=== PATIENT | male | born 1955 | race Caucasian/White ===

== ENCOUNTER → 2023-09-07 15:15 | Outpatient (BNVA) | payer OTHER, MEDICAID, SELFPAY | PROVIDERS: PCP Internal Medicine; Visit Provider Nurse Practitioner Adult Health | DX: E11.69 Type 2 diabetes mellitus with other specified complication (principal); E78.5 Hyperlipidemia, unspecified; Z79.4 Long term (current) use of insulin; Z79.899 Other long term (current) drug therapy | CPT/HCPCS: 82947; 99202 ==

== ENCOUNTER 2023-09-07 15:16 | Outpatient (AMB) | payer OTHER, MEDICAID, SELFPAY ==
--- NOTE | 2023-09-07 15:16 | A.OFFVIS_ITS ---
Vital Signs 09/07/23 15:20 Height 5 ft 5 in Weight 262 lb 5.601 oz BMI 43.7 BP 102/70 Blood Pressure Location Rt brachial Position Sitting Pulse 136 H Pulse Source Pulse Oximeter Intake Visit Reasons: Type 2 DM Intake Note: New patient presents today for T2DM, referred by PCP. Last Diabetic Eye exam: Within the year no retinopathy Last Podiatry Visit: Does not see a Dairy Husbandry Teacher Random Glucose: 195 mg/dl HgA1C: 9.1% 08/25/2023 Dental Assistant Instructor Required: No Accompanied by: Self / Same As Patient Allergies Penicillins Allergy (Unknown, Verified 09/07/23 15:22) Anaphylaxis Medication List - Last Reconciled 09/07/23 by Trina Lucas NP apixaban (Eliquis) 5 mg PO BID atorvastatin 80 mg PO BEDTIME blood sugar diagnostic ([employer]Touch Verio test strips) As directed carvedilol 3.125 mg PO BID diltiazem HCl ER 60 mg PO BID furosemide 40 mg PO DAILY insulin glargine (Lantus Solostar U-100 Insulin) 40 units subcut lancets ([employer]Touch Delica Plus Lancet) As directed naproxen 375 mg PO BID pen needle, diabetic (BD Ultra-Fine Short Pen Needle) As directed valsartan 80 mg PO DAILY HPI Comments Details: [68] YO [male] who is seen in consultation for T2DM at the request of PCP. Was initially started on treatment several years ago prior to having a CABG x4. Current regimen [Lantus 40 units]. He was on metformin in the past and had side effects of fatigue and felt poorly. He does not remember taking jardiance in the past (This was listed on his outside medical record). Checks sugars [1] times per day. Average sugar: [200 -250] Reports low sugars [none]. Treats lows with [Has not had any recent, keeps crackers in the car]. Most recent A1C [9.1], [up] from prior [8.8%] in [2022]. Family history of T2DM in []. Has eyes checked yearly, , [denies] retinopathy. [Denies ] neuropathy [Denies] nephropathy, on [SUKHJINDER/ARB]. UAC [not available] [Has] HLD, on [statin]. Last LDL [not available, requested from PCP office] [Has] CAD s/p cabg several years ago,Has had carotid surgery. Diet: Reports he has lost 80 pounds over a few years. Doesn't eat any particular diet, uses portion control loves cheese [No recent] diabetes education. Denies cp, painful neuropathy, leg cramps. [facility] Medical History (Updated 09/08/23 @ 14:49 by Trina Lucas NP) Obesity Carotid stenosis Coronary artery disease Atrial fibrillation Hyperlipidemia associated with type 2 diabetes mellitus Type 2 diabetes mellitus not at goal Surgical History History of surgery Hx of tonsillectomy Hx of appendectomy History of quadruple bypass Family History Mother Family history unknown Father Heart problem Social History Alcohol intake: current Alcohol intake frequency: holidays/special occasions only Patient Tobacco Use Status: Current someday Tobacco user Physical Exam Vital Signs: Last Vital Signs Pulse 136 H 09/07/23 15:20 BP 102/70 09/07/23 15:20 BMI result Body Mass Index 43.7 Const General: cooperative, healthy appearing and no acute distress Nutritional Appearance: overweight Orientation/consciousness: oriented to person Limitations: no limitations Neck Thyroid: Thyroid normal Chest Chest palpation & inspection: normal inspection of the chest Resp Effort & Inspection: normal respiratory effort Auscultation: clear to auscultation bilaterally Cardio Other: no carotid bruit Jugular venous distension: no JVD Rate: regular rate Rhythm: regular rhythm Heart sounds: S1 normal heart sound present and S2 normal heart sound present Neuro General: oriented to person Extrem Other: Visual exam of foot performed. No ulcerations or open lesions. No onchomycosis, no callouses. Sensation intact to monofilament exam. Vibratory sensation is normal with 128 Hz tuning fork. Results Reviewed Results Reviewed: Laboratory Last Values Glucose (Clinic) 195 mg/dL (60-115) H 09/07/23 15:43 outside lab and PCP note reviewed Assessment & Plan Assessment & Plan (1) Type 2 diabetes mellitus not at goal: Code(s): E11.9 - Type 2 diabetes mellitus without complications Category: Medical Plan: Above target A1C. Reviewed essential nature of achieving A1C of 7% to prevent additional complications of DM. Will increase Lantus to 44 units and add Semaglutide 0.25 mg weekly, titrating dose monthly. He has no prior h/o GB disease or pancreatitis. I reviewed side effects of medication. Can consider adding sglt-2 inhibitor in the future. For now, will lower his sugars with additional of GLP-1 agonist. Adding an sglt-2 inhibitor in the face of higher sugars and 2-3 times nocturia nightly may be problematic at this time. He will meet with CDE for general education and review of Semaglutide pen. (2) Hyperlipidemia associated with type 2 diabetes mellitus: Code(s): E11.69 - Type 2 diabetes mellitus with other specified complication; E78.5 - Hyperlipidemia, unspecified Category: Medical Plan: Continue statin. LDL 78 2022. Obtain recently drawn blood work. Medications: New semaglutide (Ozempic) for 4 weeks 0.25 mg (0.368 mL) subcut QWEEK 3 mL 1RF E11.9 - Type 2 diabetes mellitus without complications Coding Level of Care Code New Pt Level 4 (23091) Complex EM visit Add On G2211 Diagnoses Type 2 diabetes mellitus not at goal E11.9 Hyperlipidemia associated with type 2 diabetes mellitus E11.69; E78.5 Time Spent (min) 45 Comment 15 min chart review 30 minutes face to face
[2023-09-07 15:20] VITALS: BP 102/70; PULSE 136; BMI 43.7
[2023-09-07 15:47] LABS: Glucose, Whole Blood 195 mg/dL (60-115)
== END 2023-09-07 16:34 | disposition home or self-care (01) ==
PROVIDERS: PCP Internal Medicine; Visit Provider Nurse Practitioner Adult Health
DX: E11.69 Type 2 diabetes mellitus with other specified complication (principal); E78.5 Hyperlipidemia, unspecified
CPT/HCPCS: 99204; G2211

== ENCOUNTER 2023-09-28 15:29 | Outpatient (AMB) | payer OTHER, MEDICAID, SELFPAY ==
--- NOTE | 2023-09-28 16:04 | MHC.AMDMED ---
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: No Accompanied by: Self / Same As Patient Allergies Penicillins Allergy (Unknown, Verified 09/07/23 15:22) Anaphylaxis HPI Comprehensive Diabetes Asmnt Most Recent Diabetes Results: No Data to Display [facility] Medical History (Updated 09/08/23 @ 15:02 by Trina Lucas NP) Non-STEMI (non-ST elevated myocardial infarction) Obesity Carotid stenosis Coronary artery disease Atrial fibrillation Hyperlipidemia associated with type 2 diabetes mellitus Type 2 diabetes mellitus not at goal Surgical History History of surgery Hx of tonsillectomy Hx of appendectomy History of quadruple bypass Family History Mother Family history unknown Father Heart problem Social History Alcohol intake: current Alcohol intake frequency: holidays/special occasions only Patient Tobacco Use Status: Current someday Tobacco user Assessment & Plan Assessment & Plan (1) Type 2 diabetes mellitus not at goal: Code(s): E11.9 - Type 2 diabetes mellitus without complications Plan: Insulin/Incretin?Mimetic Education visit Patient Education: Patient at visit for Ozempic teaching Patient was instructed and provided with demonstration of the following: Insulin action and Incretin Mimetics medication storage how to set up medication pen/or syringe and vial Handwashing insulin injection site rotation Site rotation recognizing hypertrophy Testing blood glucose Removing and disposing needle from insulin pen Safe disposal of sharps Target blood sugar Signs/ symptoms/treatment of hypoglycemia/hyperglycemia expiration of open insulin pen Patient verbalized understanding of education provided and was able to demonstrate proper use of inject into injection pillow Reviewed rule of 15s to treat glucose under 70 mg/dL Patient will contact pharmacy to find out when he will receive Ozempic to 0.25 mg All questions were answered and patient was advised to contact the office with any questions or concerns. Portions of this note were created using voice recognition software, please excuse any words or phrases that may have been misinterpreted. Coding Level of Care Code Est Pt Level 1 (50572) Diagnoses Type 2 diabetes mellitus not at goal E11.9
== END 2023-09-28 16:35 | disposition home or self-care (01) ==
PROVIDERS: PCP Internal Medicine; Visit Provider Registered Nurse Diabetes Educator
DX: E11.9 Type 2 diabetes mellitus without complications (principal)

== ENCOUNTER → 2023-09-28 15:29 | Outpatient (BNVA) | payer OTHER, MEDICAID, SELFPAY | PROVIDERS: PCP Internal Medicine; Visit Provider Registered Nurse Diabetes Educator | DX: E11.9 Type 2 diabetes mellitus without complications (principal) | CPT/HCPCS: 99211 ==

== ENCOUNTER 2023-10-12 15:26 | Outpatient (REF) | payer OTHER, SELFPAY ==
[2023-10-12 17:22] LABS: Creatinine Urine 187.63 mg/dL; Microalbum/Creatinine Ratio Ur 27.1 ug/mg cr (<30)
[2023-10-12 17:31] LABS: Alanine Aminotransferase 24 U/L (0-40); Alkaline Phosphatase 138 U/L (39-117); Anion Gap 16 (12-20); Aspartate Amino Transferase 14 U/L (5-37); Bilirubin Total 0.6 mg/dL (0.0-1.0); Blood Urea Nitrogen 22 mg/dL (9-16); Calcium 9.4 mg/dL (8.4-10.2); Carbon Dioxide 25 mmol/L (22-29); Chloride 101 mmol/L (96-108); Cholesterol 133 mg/dL (<200); Estimated Glomerular Filt Rate 59; Glucose Random 177 mg/dL (60-115); HDL Cholesterol 34 mg/dL (>40); LDL Cholesterol Calculated 81 mg/dL (<100); Potassium 4.3 mmol/L (3.3-5.1); Sodium 138 mmol/L (135-145); Total Protein 7.7 g/dL (6.5-8.0); Triglycerides 92 mg/dL (<150)
[2023-10-12 17:45] LABS: Free T4 (Free Thyroxine) 1.06 ng/dL (0.71-1.85); Thyroid Stimulating Hormone 2.54 uIU/mL (0.32-4.0)
== END 2023-10-12 15:27 | disposition home or self-care (01) ==
LOC: HO.LAB 15:26
PROVIDERS: PCP Internal Medicine; Visit Provider Nurse Practitioner Adult Health
DX: E11.9 Type 2 diabetes mellitus without complications (principal); Z79.4 Long term (current) use of insulin; Z79.899 Other long term (current) drug therapy
CPT/HCPCS: 36415; 80053; 80061; 82043; 82570; 82947; 84439; 84443; 99212

== ENCOUNTER 2023-10-12 15:26 | Outpatient (AMB) | payer OTHER, MEDICAID, SELFPAY ==
[2023-10-12 15:32] VITALS: BP 112/76; PULSE 144; BMI 43.7
--- NOTE | 2023-10-12 15:32 | A.OFFVIS_ITS ---
Vital Signs 10/12/23 15:32 10/12/23 15:56 Height 5 ft 5 in Weight 262 lb 5.601 oz BMI 43.7 BP 112/76 Blood Pressure Location Rt brachial Position Sitting Pulse 144 H 88 Pulse Source Pulse Oximeter Intake Visit Reasons: T2DM/CONFIRMED Intake Note: Patient presents today for a follow-up on T2DM: Last Diabetic Eye exam: Within the year no retinopathy Last Podiatry Visit: Does not see a Acoustical Installer Random Glucose: 196mg/dL, Today Most recent HgA1C: 9.1% 08/25/2023 Allergies Penicillins Allergy (Unknown, Verified 09/07/23 15:22) Anaphylaxis HPI Comments Details: [68] YO [male] who is seen in consultation for T2DM seen in f/u today. He was seen for initial consult last month at which time Lantus was increased to 44 units and mounjaro 0.25 mg weekly was prescribed Was initially started on treatment several years ago prior to having a CABG x4. Current regimen [Lantus 40 units]. He was on metformin in the past and had side effects of fatigue and felt poorly. He does not remember taking jardiance in the past (This was listed on his outside medical record). Checks sugars [1] times per day. Average sugar: [150's] Reports low sugars [none]. Treats lows with [Has not had any recent, keeps crackers in the car]. Most recent A1C [9.1], [up] from prior [8.8%] in [2022]. Has eyes checked yearly, , [denies] retinopathy. [Denies ] neuropathy [Denies] nephropathy, on [SUKHJINDER/ARB]. UAC [not available] [Has] HLD, on [statin]. Last LDL [not available, requested from PCP office] [Has] CAD s/p cabg several years ago,Has had carotid surgery. Diet: Reports he has lost 80 pounds over a few years. Doesn't eat any particular diet, uses portion control loves cheese [No recent] diabetes education. Denies cp, painful neuropathy, leg cramps. [facility] Medical History (Updated 09/08/23 @ 15:02 by Trina Lucas NP) Non-STEMI (non-ST elevated myocardial infarction) Obesity Carotid stenosis Coronary artery disease Atrial fibrillation Hyperlipidemia associated with type 2 diabetes mellitus Type 2 diabetes mellitus not at goal Surgical History History of surgery Hx of tonsillectomy Hx of appendectomy History of quadruple bypass Family History Mother Family history unknown Father Heart problem Social History Alcohol intake: current Alcohol intake frequency: holidays/special occasions only Patient Tobacco Use Status: Current someday Tobacco user Physical Exam Vital Signs: Last Vital Signs Pulse 144 H 10/12/23 15:32 BP 112/76 10/12/23 15:32 BMI result Body Mass Index 43.7 Assessment & Plan Assessment & Plan (1) Type 2 diabetes mellitus not at goal: Code(s): E11.9 - Type 2 diabetes mellitus without complications Category: Medical Plan: continue lantus 40 units daily start ozempic 0.25mg daily decline sensor labs today Orders: Orders Thyroid Stimulating Hormone Today E11.9 - Type 2 diabetes mellitus without complications Free T4 (Free Thyroxine) Today E11.9 - Type 2 diabetes mellitus without complications Comprehensive Met. Panel Today E11.9 - Type 2 diabetes mellitus without complications Lipid Panel Today E11.9 - Type 2 diabetes mellitus without complications Microalbumin, Random (w Creat) Today E11.9 - Type 2 diabetes mellitus without complications Medications: New semaglutide (Ozempic) for 4 weeks 0.25 mg (0.368 mL) subcut QWEEK 30 days 1.84 mL 0RF E11.9 - Type 2 diabetes mellitus without complications Discontinued semaglutide (Ozempic) for 4 weeks Discontinued Reason: Doctor's Order 0.25 mg (0.187 mL) subcut QWEEK 28 days 0.748 mL 1RF E11.9 - Type 2 diabetes mellitus without complications semaglutide (Ozempic) for 4 weeks Discontinued Reason: Duplicate 0.25 mg (0.368 mL) subcut QWEEK 30 days 1.84 mL 2RF E11.9 - Type 2 diabetes mellitus without complications Coding Level of Care Code Est Pt Level 3 (79447) Complex EM visit Add On G2211 Diagnoses Type 2 diabetes mellitus not at goal E11.9 Time Spent (min) 20 Comment reviewing chart, phone to pharmacy, document
[2023-10-12 15:43] LABS: Glucose, Whole Blood 191 mg/dL (60-115)
[2023-10-12 15:56] VITALS: PULSE 88
== END 2023-10-12 16:07 | disposition home or self-care (01) ==
PROVIDERS: PCP Internal Medicine; Visit Provider Nurse Practitioner Adult Health
DX: E11.9 Type 2 diabetes mellitus without complications (principal)
CPT/HCPCS: 99213; G2211

== ENCOUNTER 2023-11-23 14:52 | Outpatient (AMB) | payer OTHER, MEDICAID, SELFPAY ==
--- NOTE | 2023-11-23 13:47 | A.OFFVIS_ITS ---
Vital Signs 11/23/23 15:27 Height 5 ft 5 in Weight 260 lb 9.382 oz BMI 43.4 BP 148/66 H Blood Pressure Location Rt brachial Position Sitting Pulse 73 Pulse Source Pulse Oximeter Intake Visit Reasons: T2DM/CONFIRMED Intake Note: Patient presents today for a follow-up on T2DM: Last Diabetic Eye exam: 12/2022 Last Podiatry Visit: Does not see a Buffer Copper Random Glucose: 111 mg/dL, Today Most recent HgA1C: 7.8% Mold Inspector Required: No Accompanied by: Self / Same As Patient Allergies Penicillins Allergy (Unknown, Verified 11/23/23 15:34) Anaphylaxis HPI Comments Details: [68] YO [male] who is seen in follow up for T2DM. He was seen for initial diabetes consult two months ago at which time mounjaro was prescribed. Was initially started on treatment several years ago prior to having a CABG x4. Had been on metformin with symptoms of fatigue and feeling poorly. He does not remember being on jardiance or having side effects to this however outside medical record indicate he was on Jardiance. HE has lost several pounds since his last visit, Current regimen [Lantus 40 units]. Moumjaro 2.5mg weekly Checks sugars [1] times per day. Average sugar: [150's] Reports low sugars [none]. Treats lows with several pieces of candy,keeps crackers in the car]. Most recent A1C [9.1], [up] from prior [8.8%] in [2022]. Has eyes checked yearly, , [denies] retinopathy. [Denies ] neuropathy [Denies] nephropathy, on [SUKHJINDER/ARB]. UAC [not available] [Has] HLD, on [statin]. Last LDL [not available] [Has] CAD s/p cabg several years ago,Has had carotid surgery. Diet: Reports he has lost 80 pounds over a few years. Doesn't eat any particular diet, uses portion control loves cheese [No recent] diabetes education. Denies cp, painful neuropathy, leg cramps. [facility] Medical History Non-STEMI (non-ST elevated myocardial infarction) Obesity Carotid stenosis Coronary artery disease Atrial fibrillation Hyperlipidemia associated with type 2 diabetes mellitus Type 2 diabetes mellitus not at goal Surgical History History of surgery Hx of tonsillectomy Hx of appendectomy History of quadruple bypass Family History Mother Family history unknown Father Heart problem Social History Alcohol intake: current Alcohol intake frequency: holidays/special occasions only Patient Tobacco Use Status: Current someday Tobacco user Physical Exam Vital Signs: Last Vital Signs Pulse 73 11/23/23 15:27 BP 148/66 H 11/23/23 15:27 BMI result Body Mass Index 43.4 Const Other: Absence of Cushingoid features. Absence of acromegalic features. Neck exam reveals nl size thyroid about 15 gms. No thyroid nodules palpable. Skin exam reveals absence of vitiligo or acanthosis nigricans. Extrem Other: Visual exam of foot performed. No ulcerations or open lesions. No onchomycosis, no callouses. Sensation intact to monofilament exam. Vibratory sensation is normal with 128 Hz tuning fork. Results AMB Hemoglobin A1c AMB Hemoglobin A1c 7.8 % Last Edit by СВЕТЛАНА Hussein on 11/23/23 15:49 Results Reviewed Results Reviewed: Laboratory Last Values Glucose (Clinic) 111 mg/dL (60-115) 11/23/23 15:37 Hgb A1c (Clinic) 7.8 % (4.0-6.0) H 11/23/23 15:41 Assessment & Plan Assessment & Plan (1) Type 2 diabetes mellitus not at goal: Code(s): E11.9 - Type 2 diabetes mellitus without complications Category: Medical Plan: Type 2 diabetic with known coronary artery disease with improving A1c. A1c today in the office 7.8% down from 9.3%. Increase Mounjaro to 5 mg and reduce Lantus to 34 units. He was advised that he could titrate his insulin downward an additional 6 units as needed if he is having any low sugars. Target A1c with this patient is between 7 and 8% given his age but would prefer to get down to 7%. Orders: Orders AMB Hemoglobin A1c Today E11.9 - Type 2 diabetes mellitus without complications, Z13.9 - Encounter for screening, unspecified Medications: New tirzepatide (Mounjaro) 5 mg (0.5 mL) subcut QWEEK 28 days 2 mL 11RF Discontinued tirzepatide (Mounjaro) Discontinued Reason: Duplicate 2.5 mg (0.5 mL) subcut QWEEK 4 weeks 2 mL 0RF tirzepatide (Mounjaro) Discontinued Reason: Doctor's Order 2.5 mg (0.5 mL) subcut QWEEK 4 weeks 2 mL 2RF E11.9 - Type 2 diabetes mellitus without complications Patient Instructions: The patient was counseled to always carry a source of sugar and on the rule of 15's: Take 3 glucose tablets and repeat again in 15 minutes if blood sugar is not in normal range. Continue to repeat every 15 minutes until blood sugar is normal. Coding Level of Care Code Est Pt Level 4 (09637) Diagnoses Type 2 diabetes mellitus not at goal E11.9 Time Spent (min) 35 Comment Time spent reviewing labs/provider notes, face to face, chart doc
[2023-11-23 15:27] VITALS: BP 148/66; PULSE 73; BMI 43.4
[2023-11-23 15:43] LABS: Glucose, Whole Blood 111 mg/dL (60-115)
== END 2023-11-23 16:06 | disposition home or self-care (01) ==
PROVIDERS: PCP Internal Medicine; Visit Provider Nurse Practitioner Adult Health
DX: Z13.9 Encounter for screening, unspecified (principal); E11.9 Type 2 diabetes mellitus without complications
CPT/HCPCS: 99214

== ENCOUNTER → 2023-11-23 14:52 | Outpatient (BNVA) | payer OTHER, MEDICAID, SELFPAY | PROVIDERS: PCP Internal Medicine; Visit Provider Nurse Practitioner Adult Health | DX: E11.9 Type 2 diabetes mellitus without complications (principal); Z79.84 Long term (current) use of oral hypoglycemic drugs; Z95.1 Presence of aortocoronary bypass graft | CPT/HCPCS: 82947; 83036; 99212 ==

== ENCOUNTER 2023-11-30 14:59 | Outpatient (AMB) | payer OTHER, MEDICAID, SELFPAY ==
--- NOTE | 2023-11-30 15:35 | A.OFFVIS_ITS ---
Intake Intake Visit Reasons: 60 min-conf Souvenir Assembler Required: No Accompanied by: Self / Same As Patient Allergies Penicillins Allergy (Unknown, Verified 11/23/23 15:34) Anaphylaxis HPI Comprehensive Diabetes Asmnt Most Recent Diabetes Results: Microalb/Creat Ratio 27.1 ug/mg cr (<30) 10/12/23 Cholesterol 133 mg/dL (<200) 10/12/23 HDL Cholesterol 34 mg/dL (>40) L 10/12/23 Triglycerides 92 mg/dL (<150) 10/12/23 Creatinine 1.21 mg/dL (0.5-1.4) 10/12/23 Blood Urea Nitrogen 22 mg/dL (9-16) H 10/12/23 Sodium 138 mmol/L (135-145) 10/12/23 Potassium 4.3 mmol/L (3.3-5.1) 10/12/23 Chloride 101 mmol/L (96-108) 10/12/23 Carbon Dioxide 25 mmol/L (22-29) 10/12/23 Calcium 9.4 mg/dL (8.4-10.2) 10/12/23 AST 14 U/L (5-37) 10/12/23 ALT 24 U/L (0-40) 10/12/23 Total Protein 7.7 g/dL (6.5-8.0) 10/12/23 Albumin 4.0 g/dL (3.5-5.0) 10/12/23 [facility] Medical History Non-STEMI (non-ST elevated myocardial infarction) Obesity Carotid stenosis Coronary artery disease Atrial fibrillation Hyperlipidemia associated with type 2 diabetes mellitus Type 2 diabetes mellitus not at goal Surgical History History of surgery Hx of tonsillectomy Hx of appendectomy History of quadruple bypass Family History Mother Family history unknown Father Heart problem Social History Alcohol intake: current Alcohol intake frequency: holidays/special occasions only Patient Tobacco Use Status: Current someday Tobacco user Assessment & Plan Assessment & Plan (1) Type 2 diabetes mellitus not at goal: Code(s): E11.9 - Type 2 diabetes mellitus without complications Plan: Learning objectives: The patient was provided with verbal and written education on the following topics as outlined below. The patient met all learning objectives and was able to verbalize understanding and provide teach back of education topics discussed . The patient was provided with the opportunity to ask questions and all questions were answered. Patient Assessment Assess patient education level/literacy/barriers Patient questions/concerns, patient's last A1c on 11/23/2023 7.8% Patient is currently on Mounjaro 5 mg weekly Lantus 34 units daily Patient did not bring meter to today's visit reports testing once a day. Patient did report that occasionally he wakes up with glucose under 70 mg/dL, instructed patient if this becomes a pattern he can reduce Lantus 34 units, to Lantus 30 units, he continues to have hypoglycemia he should contact BODY TEAM MEMBER or natural resources extension educator Reviewed with patient how to treat low blood sugar with rule of 15s, handout given At this time patient stated he is not interested in CGM therapy. What is Diabetes? Pathophysiology How the body produces and uses insulin Identify type of DM Risk factors Signs of Diabetes Brief overview of Diabetes Management Monitoring blood sugar Following a meal plan Regular exercise Maintaining a healthy weight Taking medication as needed Members of the care team (PCP, RN, MA, RD, CDE, producer director) Blood glucose monitoring When/how often to test Target blood sugar ranges Introduction to Nutrition Importance of healthy diet in managing DM Diet is personalized to individual preference Review patient?s regular diet/food preferences Who prepares meals/does food shopping/ Dining out?/ Barriers? How diet effects glucose Eating 3 balanced meals a day with small, healthy snacks between meals Review food groups Carbohydrates: What is a carbohydrate/Which food/food groups are considered carbohydrates Effect of carbohydrates on blood glucose Portion sizes Reading food labels Basic carb counting (if applicable per nursing assessment) Plate method Meal planning Recommendations: Follow plate method, consistent carbs and read nutritional labels. Smart Goal: Patient will test glucose at very times of the day Educational Materials: The patient was provided with the following written educational materials: Planning Healthy Meals Handout Patient Response to instructions: Comprehension of Instructions: Fair Readiness to make changes: Contemplation How confident they feel about making changes: Positive Portions of this note were created using voice recognition software, please excuse any words or phrases that may have been misinterpreted. Patient Instructions: Include regular daily activity. ADA recommends 30 minutes of exercise 5 days a week. Weight loss talk to PCP or Teletype Operator before starting new plan. Test blood sugar as directed; Fasting and 2hpp largest meal. Watch trends in results. Utilize results and to assess how food, physical activity and medications affect blood sugar results. Bring glucometer or CGM to next visit. Be knowledgeable about diabetes medication, its action, side effects, efficacy, toxicity, prescribed dosage, appropriate timing and frequency of administration, effect of missed and delayed doses and instructions for storage, travel and safety. Problem solving techniques to monitor hypo/hyperglycemia episodes and treatments. Reduce risk reduction behaviors, smoking cessation, regular eye, foot and dental examinations. Coding Level of Care Code Est Pt Level 1 (66915) Diagnoses Type 2 diabetes mellitus not at goal E11.9
== END 2023-11-30 15:52 | disposition home or self-care (01) ==
PROVIDERS: PCP Internal Medicine; Visit Provider Registered Nurse Diabetes Educator
DX: E11.9 Type 2 diabetes mellitus without complications (principal)

== ENCOUNTER → 2023-11-30 14:59 | Outpatient (BNVA) | payer OTHER, MEDICAID, SELFPAY | PROVIDERS: PCP Internal Medicine; Visit Provider Registered Nurse Diabetes Educator | DX: E11.9 Type 2 diabetes mellitus without complications (principal) | CPT/HCPCS: 99211 ==

== ENCOUNTER 2024-02-22 14:40 | Outpatient (AMB) | payer OTHER, MEDICAID, SELFPAY ==
--- NOTE | 2024-02-22 12:30 | A.OFFVIS_ITS ---
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 He was seen for initial diabetes consult two months ago at which time mounjaro was prescribed. Was initially started on treatment several years ago prior to having a CABG x4. Had been on metformin with symptoms of fatigue and feeling poorly. He does not remember being on jardiance or having side effects to this however outside medical record indicate he was on Jardiance. HE has lost several pounds since his last visit, Current regimen [Lantus 40 units]. Moumjaro 2.5mg weekly Checks sugars [1] times per day. Average sugar: [150's] Reports low sugars [none]. Treats lows with several pieces of candy,keeps crackers in the car]. Most recent A1C [9.1], [up] from prior [8.8%] in [2022]. Has eyes checked yearly, , [denies] retinopathy. [Denies ] neuropathy [Denies] nephropathy, on [SUKHJINDER/ARB]. UAC [not available] [Has] HLD, on [statin]. Last LDL [not available] [Has] CAD s/p cabg several years ago,Has had carotid surgery. Diet: Reports he has lost 80 pounds over a few years. Doesn't eat any particular diet, uses portion control loves cheese [No recent] diabetes education. Denies cp, painful neuropathy, leg cramps. [facility] Medical History Non-STEMI (non-ST elevated myocardial infarction) Obesity Carotid stenosis Coronary artery disease Atrial fibrillation Hyperlipidemia associated with type 2 diabetes mellitus Type 2 diabetes mellitus not at goal Surgical History History of surgery Hx of tonsillectomy Hx of appendectomy History of quadruple bypass Family History Mother Family history unknown Father Heart problem Social History Alcohol intake: current Alcohol intake frequency: holidays/special occasions only Patient Tobacco Use Status: Current someday Tobacco user Physical Exam Vital Signs: Last Vital Signs Pulse 132 H 02/22/24 14:46 BP 138/82 02/22/24 14:46 BMI result Body Mass Index 43.3 Const Other: Absence of Cushingoid features. Absence of acromegalic features. Neck exam reveals nl size thyroid about 15 gms. No thyroid nodules palpable. No carotid bruits present. Lungs CTA. Heart S1 S2, Reg R/R. No M/R G. Skin exam reveals absence of vitiligo or acanthosis nigricans. No edema Visual exam of foot performed. No ulcerations or open lesions. No inter digit maceration or fissuring. No onychomycosis, no callouses. Sensation intact to monofilament exam. Vibratory sensation is normal with 128 Hz tuning fork. Results AMB Hemoglobin A1c AMB Hemoglobin A1c 6.5 % Last Edit by СВЕТЛАНА Zarate on 02/22/24 15:16 Results Reviewed Results Reviewed: Laboratory Last Values Glucose (Clinic) 147 mg/dL (60-115) H 02/22/24 15:05 Hgb A1c (Clinic) 6.5 % (4.0-6.0) H 02/22/24 14:45 Assessment & Plan Assessment & Plan (1) Type 2 diabetes mellitus not at goal: Code(s): E11.9 - Type 2 diabetes mellitus without complications Category: Medical Plan: 69 year old type 2 diabetic Orders: Orders AMB Hemoglobin A1c Today E11.9 - Type 2 diabetes mellitus without complications Patient Instructions: The patient was counseled to achieve a target A1C of 7% (154 avg). Fasting blood sugars should be 90-130 in the morning and less than 180 two hours after meals. Reviewed the relationship between poor diabetic control and the development of complications. The patient was counseled to always carry a source of sugar and on the rule of 15's: Take 3 glucose tablets and repeat again in 15 minutes if blood sugar is not in normal range. Continue to repeat every 15 minutes until blood sugar is normal. Check your feet daily looking for any signs of infection, ulceration and seek medical attention if this occurs. Break in shoes gradually and do not wear open-toed shoes or walk barefooted. Coding Diagnoses Type 2 diabetes mellitus not at goal E11.9
[2024-02-22 14:46] VITALS: BP 138/82; PULSE 132; BMI 43.3
[2024-02-22 15:11] LABS: Glucose, Whole Blood 147 mg/dL (60-115)
--- OUTSIDE RECORDS SUMMARY | 2024-02-29 15:01 | XMS_ITS | Continuity of Care Document ---
Author Organization [facility] Address [address] [place] [address]- Care Team Providers Care Hospital Admissions Officer Name Role Phone Kallie KRUSE, Mario Dunn Primary Care Physician Encounter [facility] Date(s): 01/12/24 - 02/11/24 [facility] [address], [place] [address] Attending Physician: Bharath Valle Admitting Physician: AdmBharath reed Referring Physician: Admtr ArNiko Encounter Type: Triage Allergies, Adverse Reactions, Alerts Substance Criticality Severity Reaction Reaction Severity Status penicillin 1 High criticality Severe anaphylaxis Active Pork Active Egg Allergy Active 1anaphylaxis Immunizations Given and Recorded Vaccine Date Status Refusal Reason SARS-CoV-2 (COVID-19) mRNA-1273 vaccine 03/20/21 R ecorded SARS-CoV-2 (COVID-19) mRNA-1273 vaccine 06/13/20 R ecorded SARS-CoV-2 (COVID-19) mRNA-1273 vaccine 05/16/20 R ecorded Medications aspirin 81 mg oral delayed release tablet = 81 mg, By Mouth, Daily, # 30 tablet, 0 Refills, Maintenance, 03/25/22 1:09:00 PM EST, EC Tablet, [id number], Partial fill upon patient request if the prescription is for a schedule II opioid drug., 111.7, kg, 03/23/22 17:57:00 EST, Dry Weight Start Date: 03/25/22 Stop Date: 04/24/22 Status: Ordered Quantity: 30.0 Unit: tablet Repeat number: 1 atorvastatin 80 mg oral tablet 90 each, 0 Refill(s), TAKE 1 TABLET BY MOUTH AT BEDTIME, 0 Refills, 08/30/23 11:55:00 AM EDT, Partial fill upon patient request if the prescription is for a schedule II opioid drug. Start Date: 08/30/23 Status: Ordered Repeat number: 1 carvedilol 3.125 mg oral tablet 3.125 mg, 1, tablet, By Mouth, 2 times a day, Maintenance, 01/19/23 2:08:00 PM EDT, Partial fill upon patient request if the prescription is for a schedule II opioid drug. Start Date: 01/19/23 Status: Ordered Repeat number: 1 DilTIAZem Hydrochloride SR 60 mg/12 hours oral capsule, extended release 1 capsule = 60 mg, By Mouth, 2 times a day Start Date: 10/21/23 Status: Ordered Repeat number: 1 Eliquis 5 mg oral tablet 180 each, 0 Refill(s), TAKE 1 TABLET BY MOUTH TWICE DAILY, 0 Refills, 08/30/23 11:55:00 AM EDT, Partial fill upon patient request if the prescription is for a schedule II opioid drug. Start Date: 08/30/23 Status: Ordered Repeat number: 1 Lantus Solostar Pen 100 units/mL subcutaneous solution ADMINISTER 40 UNITS UNDER THE SKIN EVERY EVENING Start Date: 10/21/23 Status: Ordered Repeat number: 1 Mounjaro 2.5 mg/0.5 mL subcutaneous solution ADMINISTER 2.5 MG UNDER THE SKIN EVERY WEEK FOR 4 WEEKS Start Date: 10/21/23 Status: Ordered Repeat number: 1 valsartan 80 mg oral tablet 80 mg, 1, tablet, By Mouth, Daily, Maintenance, 01/19/23 1:58:00 PM EDT, Partial fill upon patient request if the prescription is for a schedule II opioid drug. Start Date: 01/19/23 Status: Ordered Repeat number: 1 Problem List Condition Confirmation Course Effective Dates Status Health St atus Informant Obese class II Confirmed Active Social History Social History Type Response Smoking Status Cigars or pipes matthieu y within last 30 days; Type: Cigarettes; Number of years: 15; Started at age: 15; Stopped at age: 30; entered on: 12/11/22 Sex Sex Representation Male (finding) Patient Care team information Care Team Personnel Name: Lizy Garcia RN Position: [facility] RN Member Role: Primary Care Nurse Name: Oneida Caballero RN Position: S RN Supv Member Role: Primary Care Nurse Name: Mario Arreguin MD Position: [facility] Physician - Primary Care Member Role: PCP Address: [address] [place] [address]- [place] Telecom: Name: Mary Fields RN Position: S RN Member Role: Primary Care Nurse Name: Jaquan Valerio MD Position: [facility] Renal MD Member Role: Lifetime Consulting Physician Address: [address] [facility] [place] [address]- [place] Telecom: Name: Annalise Kaplan RN Position: S RN Member Role: Primary Care Nurse Name: Martha Greenberg RN Position: S RN Member Role: Primary Care Nurse Name: Cole Bush RN Position: S RN Member Role: Primary Care Nurse Name: Charu Crawford RN Position: S RN Member Role: Primary Care Nurse Care Team Related Persons Name: CHAN STEVENS Name: SON STEVENS Insurance Providers Guarantor name: ANNETTA STEVENS Health Plan Information #: 1 Payer: NA Member Number: NA Policy Number: NA Group Number: NA Health Plan Information #: 2 Payer: [employer] MED[employer]ARE ADV PPO Member Number: NA Policy Number: NA Group Number: NA
--- OUTSIDE RECORDS SUMMARY | 2024-02-29 15:01 | XMS_ITS | Continuity of Care Document ---
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 Unspecified Restorative Procedure, By Re port Limited Oral Evaluation-Problem Focused PORCELAIN FUSED TO BASE/IMP PFM TEMPORARY CROWN PFM/PREP AND FINAL IMP Resin-Based Composite-Four Or More Surfa jf Or Inv Anterior (Excluding Final Advent) J RCT IN PROCESS Intraoral-Periapical First Film 013 Palliative (Emergency) Treatment Of [place] al Pain Oral Hygiene Instructions Periodontal Scaling [...] Provider Providers Copied on Encounter [facility], [address], [place], [id number], tel:[phone] [facility] 5 No Information [facility], [address], [place], [place], [id number], tel:[phone] [facility] examination 4 No Information [facility], [address], [place], [place], [id number], [place] tel:[phone] [facility] Sep-0 7- 4 No Information [facility], [address], [place], [place], [id number], [place] tel:[phone] [facility] examination 4 No Information [facility], [address], [place], [place], [id number], [place] tel:[phone] [facility] examination 0 - 4 No Information [facility], [address], [place], [place], [id number], [place] tel:[phone] [facility] examination 4 No Information [facility], [address], [place], [place], [id number], [place] tel:[phone] [facility] examination Jun- 4 No Information [facility], [address], [place], [place], [id number], [place] tel:[phone] [facility] examination 4 Jaycee Lara. [address] [place] [address], [id number], [place]. tel:[phone] [facility], [address], [place], [place], [id number], [place] tel:[phone] [facility] Jun-0 4 No Information [facility], [address], [place], [place], [id number], [place] tel:[phone] [facility] examination 4 No Information [facility], [address], [place], [place], [id number], [place] tel:[phone] [facility] examination 0 4 No Information [facility], [address], [place], [place], [id number], [place] tel:[phone] [facility] examination 2 3 No Information [facility], [address], [place], [place], [id number], [place] tel:[phone] [facility] examination 3 No Information [facility], [address], [place], [place], [id number], [place] tel:[phone] [facility] examination 3 No Information [facility], [address], [place], [place], [id number], [place] tel:[phone] [facility] examination 3 No Information [facility], [address], [place], [place], [id number], [place] tel:[phone] [facility] examination 3- 3 No Information [facility], [address], [place], [place], [id number], [place] tel:[phone] [facility] examination 3 No Information [facility], [address], [place], [place], [id number], [place] tel:[phone] [facility] examination 3 No Information Family History Family Member Type Diagnosis Age At Onset No Information Payers Payer name Insurance type Covered democrat ID Elvin gonzalez(ramón) Cathi [facility] CI [id number] Social History Type Description Quantity Date Captured Comments Alcohol Use Details Unknown Caffeine Use Details Unknown Tobacco Use Status No Information Smoking Status No Information Sex Male Chief Complaint And Reason For Visit No Information Reason For Referral Reason For Referral No Information Plan Of Treatment Date Type Action Status Goal CT-Colonography. Due on due Goal FIT-DNA. Due on due Goal Unhealthy drug use screening . Due on due Goal Zoster vaccine (). Due on due Goal FOBT. Due on due Goal Hepatitis C Screening. Due o n due Goal Document SOGI Information. D ue on due Goal Lipid panel. Due on due Goal Td vaccine. Due on 15 due Goal Zoster vaccine. Due on due Goal APE. Due on [...]
== END 2024-02-22 15:39 | disposition home or self-care (01) ==
PROVIDERS: PCP Internal Medicine; Visit Provider Nurse Practitioner Adult Health
DX: E11.9 Type 2 diabetes mellitus without complications (principal)

== ENCOUNTER → 2024-02-22 14:40 | Outpatient (BNVA) | payer OTHER, MEDICAID, SELFPAY | PROVIDERS: PCP Internal Medicine; Visit Provider Nurse Practitioner Adult Health | DX: E11.9 Type 2 diabetes mellitus without complications (principal) | CPT/HCPCS: 82947; 83036; 99212 ==

== ENCOUNTER 2024-03-29 14:56 | Outpatient (AMB) | payer MEDICARE, SELFPAY ==
--- OUTSIDE RECORDS SUMMARY | 2024-03-29 14:59 | XMS_ITS | Continuity of Care Document ---
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 [facility] [address], [place], [id number], tel:[phone] [facility] 5 No Information Nicholas Marcus [facility], [address] [facility] [address] [facility] [address], [place], [place], [id number], tel:[phone] [facility] examination 4 No Information Nicholas Marcus [facility], [address] [facility] [address] [facility] [address], [place], [place], [id number], [place] tel:[phone] [facility] Sep-0 7- 4 No Information [facility], [address] [facility] [facility] [address], [place], [place], [id number], [place] tel:[phone] [facility] examination 4 No Information [facility], [address] [facility] [address] [facility] [address], [place], [place], [id number], [place] tel:[phone] [facility] examination 0 - 4 No Information [facility], [address] [facility] [address] [facility] [address], [place], [place], [id number], [place] tel:[phone] [facility] examination 4 No Information [facility], [address] [facility] [facility] [address], [place], [place], [id number], [place] tel:[phone] [facility] Jun- 4 No Information [facility], [address] [facility] [address] [facility] [address], [place], [place], [id number], [place] tel:[phone] [facility] examination 4 Jaycee Lara. [address] [place] [address], [id number], [place]. tel:[phone] [facility], [address] [facility] [address], [place], [place], [id number], [place] tel:[phone] [facility] Jun-0 4 No Information [facility], [address] [facility] [address], [place], [place], [id number], [place] tel:[phone] [facility] examination 4 No Information [facility], [address] [facility] [address], [place], [place], [id number], [place] tel:[phone] [facility] examination 0 4 No Information [facility], [address] [facility] [address], [place], [place], [id number], [place] tel:[phone] [facility] examination 2 3 No Information [facility], [address] [facility] [address], [place], [place], [id number], [place] tel:[phone] [facility] examination 3 No Information [facility], [address] [facility] [address], [place], [place], [id number], [place] tel:[phone] [facility] examination 3 No Information [facility], [address] [facility] [address], [place], [place], [id number], [place] tel:[phone] [facility] examination 3 No Information [facility], [address] [facility] [address], [place], [place], [id number], [place] tel:[phone] [facility] examination 3- 3 No Information [facility], [address] [facility] [facility] [address], [place], [place], [id number], [place] tel:[phone] [facility] examination 3 No Information [facility], [address] [facility] [facility] [address], [place], [place], [id number], [place] tel:[phone] [facility] examination 3 No Information Family History Family Member Type Diagnosis Age At Onset No Information Payers Payer name Insurance type Covered republican ID Elvin gonzalez(ramón) Cathi Suarez [facility] CI [id number] Social History Type Description Quantity Date Captured [...]
--- NOTE | 2024-03-29 15:34 | A.OFFVIS_ITS ---
Intake Intake Visit Reasons: 60 min Application Development Project Manager Required: No Accompanied by: Self / Same As Patient Allergies Penicillins Allergy (Unknown, Verified 02/22/24 14:44) Anaphylaxis HPI Comprehensive Diabetes Asmnt Most Recent Diabetes Results: Microalb/Creat Ratio 27.1 ug/mg cr (<30) 10/12/23 Cholesterol 133 mg/dL (<200) 10/12/23 HDL Cholesterol 34 mg/dL (>40) L 10/12/23 Triglycerides 92 mg/dL (<150) 10/12/23 Creatinine 1.21 mg/dL (0.5-1.4) 10/12/23 Blood Urea Nitrogen 22 mg/dL (9-16) H 10/12/23 Sodium 138 mmol/L (135-145) 10/12/23 Potassium 4.3 mmol/L (3.3-5.1) 10/12/23 Chloride 101 mmol/L (96-108) 10/12/23 Carbon Dioxide 25 mmol/L (22-29) 10/12/23 Calcium 9.4 mg/dL (8.4-10.2) 10/12/23 AST 14 U/L (5-37) 10/12/23 ALT 24 U/L (0-40) 10/12/23 Total Protein 7.7 g/dL (6.5-8.0) 10/12/23 Albumin 4.0 g/dL (3.5-5.0) 10/12/23 [facility] Medical History Non-STEMI (non-ST elevated myocardial infarction) Obesity Carotid stenosis Coronary artery disease Atrial fibrillation Hyperlipidemia associated with type 2 diabetes mellitus Type 2 diabetes mellitus not at goal Surgical History History of surgery Hx of tonsillectomy Hx of appendectomy History of quadruple bypass Family History Mother Family history unknown Father Heart problem Social History Alcohol intake: current Alcohol intake frequency: holidays/special occasions only Patient Tobacco Use Status: Current someday Tobacco user Assessment & Plan Assessment & Plan (1) Hyperlipidemia associated with type 2 diabetes mellitus: Code(s): E11.69 - Type 2 diabetes mellitus with other specified complication; E78.5 - Hyperlipidemia, unspecified Plan: Learning objectives: The patient was provided with verbal and written education on the following topics as outlined below. The patient met all learning objectives and was able to verbalize understanding and provide teach back of education topics discussed . The patient was provided with the opportunity to ask questions and all questions were answered. Patient Assessment Patient questions/concerns, patient's A1c on 02/22/2024 6.5%, down from 7.8% on 11/25/23 Patient reports he has reduced his Lantus to 25 units daily due to having some fasting blood sugars in the mid 70s. Reports a sometimes he feels very tired in the morning, however he does not check glucose at that time. Recommended to patient when he feels tired to check glucose to see if he is experiencing hypoglycemia Reviewed with patient how to treat hypoglycemia with rule of 15s Patient will also be switching from Mounjaro 2.5 mg to Ozempic 1 mg, due to insurance. Reviewed with patient how to use Ozempic pen Exercise Medical clearance Effect of exercise on blood sugar Start slowly and gradually increase pace/duration over time Goal amount of exercise Checking blood glucose/have a source of carbs with you Diabetes Complications: ?Nephropathy :Kidney Disease ?diabetes can damage the kidneys, which is not only can cause them to fail but can make them lose their ability to filter waste from the blood? ?Retinopathy: Eye complications ?Retinopathy? is the commonest long-term complication of diabetes. It is leading cause of blindness Besides, Retinopathy- People with diabetes? are also prone to cataract and Glaucoma. ?Neuropathy: Nerve damage -It involves temporary or permanent damage to nerve tissue. Nerve tissue gets injured mainly due to decreased blood flow and rise in blood glucose levels. This damage can lead to pain , or loss of sensation it can also include sexual dysfunction in both men and women ? Infections poor healing: People with diabetes? have increased susceptibility to various infections, such as? pneumonias, pyelonephritis, carbuncles and diabetic ulcers. This may be due to poor blood supply, reduced cellular immunity or hyperglycemia. ?Heart Disease And Stroke: People with diabetes are four times more prone to develop Heart disease than those who do not have diabetes ?Depression: Feeling down once in awhile is normal, but some people feel sadness that just won't go away. Life for them seems hopeless. Feeling this way most of the day for two weeks or more is a sign of serious depression ?Gum Disease: People get gum disease when plaque destroys the gums and bone around the teeth. People with diabetes can get gum disease from having high blood glucose levels for a long time Lifestyle * Work * Travel * Stress management * Problem solving Know your goals * A1C * Blood sugar targets * Blood pressure * Cholesterol/LDL Urine microalbumin Smart Goal Assessment:Patient will test glucose at very times of the day Pt met goal less than 25% New Goal:? Patient will bring meter to every visit at [facility] Educational Materials: The patient was provided with the following written educational materials: ADCES 7 Healthy Behaviors Reducing Risks handout Patient Response to instructions: Comprehension of Instructions: good Readiness to make changes: action How confident they feel about making changes: positive Letter of completion of diabetes Education program will be sent to referring provider Patient will follow-up with music educator in 4 months Portions of this note were created using voice recognition software, please excuse any words or phrases that may have been misinterpreted. Patient Instructions: Include regular daily activity. ADA recommends 30 minutes of exercise 5 days a week. Weight loss talk to PCP or [employer] before starting new plan. Test blood sugar as directed; Fasting and 2hpp largest meal. Watch trends in results. Utilize results and to assess how food, physical activity and medications affect blood sugar results. Bring glucometer or CGM to next visit. Be knowledgeable about diabetes medication, its action, side effects, efficacy, toxicity, prescribed dosage, appropriate timing and frequency of administration, effect of missed and delayed doses and instructions for storage, travel and safety. Problem solving techniques to monitor hypo/hyperglycemia episodes and treatments. Reduce risk reduction behaviors, smoking cessation, regular eye, foot and dental examinations. Coding Level of Care Code Est Pt Level 1 (31613) Diagnoses Hyperlipidemia associated with type 2 diabetes mellitus E11.69; E78.5
== END 2024-03-29 15:42 | disposition home or self-care (01) ==
PROVIDERS: PCP Internal Medicine; Visit Provider Registered Nurse Diabetes Educator
DX: E11.69 Type 2 diabetes mellitus with other specified complication (principal); E78.5 Hyperlipidemia, unspecified

== ENCOUNTER → 2024-03-29 14:56 | Outpatient (BNVA) | payer BC, MEDICAID, SELFPAY | PROVIDERS: PCP Internal Medicine; Visit Provider Registered Nurse Diabetes Educator | DX: E11.69 Type 2 diabetes mellitus with other specified complication (principal); E78.5 Hyperlipidemia, unspecified | CPT/HCPCS: 99211 ==

== ENCOUNTER 2024-07-26 14:02 | Outpatient (AMB) | payer MEDICARE, SELFPAY ==
--- NOTE | 2024-07-26 14:41 | A.OFFVIS_ITS ---
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 Required: No Accompanied by: Self / Same As Patient Allergies Penicillins Allergy (Unknown, Verified 02/22/24 14:44) Anaphylaxis HPI Comprehensive Diabetes Asmnt Most Recent Diabetes Results: Microalb/Creat Ratio 27.1 ug/mg cr (<30) 10/12/23 Cholesterol 133 mg/dL (<200) 10/12/23 HDL Cholesterol 34 mg/dL (>40) L 10/12/23 Triglycerides 92 mg/dL (<150) 10/12/23 Creatinine 1.21 mg/dL (0.5-1.4) 10/12/23 Blood Urea Nitrogen 22 mg/dL (9-16) H 10/12/23 Sodium 138 mmol/L (135-145) 10/12/23 Potassium 4.3 mmol/L (3.3-5.1) 10/12/23 Chloride 101 mmol/L (96-108) 10/12/23 Carbon Dioxide 25 mmol/L (22-29) 10/12/23 Calcium 9.4 mg/dL (8.4-10.2) 10/12/23 AST 14 U/L (5-37) 10/12/23 ALT 24 U/L (0-40) 10/12/23 Total Protein 7.7 g/dL (6.5-8.0) 10/12/23 Albumin 4.0 g/dL (3.5-5.0) 10/12/23 [facility] Medical History Non-STEMI (non-ST elevated myocardial infarction) Obesity Carotid stenosis Coronary artery disease Atrial fibrillation Hyperlipidemia associated with type 2 diabetes mellitus Type 2 diabetes mellitus not at goal Surgical History History of surgery Hx of tonsillectomy Hx of appendectomy History of quadruple bypass Family History Mother Family history unknown Father Heart problem Social History Alcohol intake: current Alcohol intake frequency: holidays/special occasions only Patient Tobacco Use Status: Current someday Tobacco user Assessment & Plan Assessment & Plan (1) Hyperlipidemia associated with type 2 diabetes mellitus: Code(s): E11.69 - Type 2 diabetes mellitus with other specified complication; E78.5 - Hyperlipidemia, unspecified Plan: Learning objectives: The patient was provided with verbal and written education on the following topics as outlined below. Patient stated he would like to stop diabetes medications, discussed with patient the importance of controlling glucose with physical activity, meal planning and taking medications as prescribed Patient questions/concerns, patient reports he has been unable to afford co-pay for Ozempic 1 mg weekly, so he is currently only taking Lantus and he has titrated up to 35 units daily Patient denies hypoglycemia, reviewed with patient symptoms of hypoglycemia The patient met all learning objectives and was able to verbalize understanding and provide teach back of education topics discussed . The patient was provided with the opportunity to ask questions and all questions were answered. Topics covered in today?s session included: Insulin/Injectables (If applicable) * Storage/care of insulin?? * Injection sites? * Site rotation? * Onset, peak, duration * Drawing up insulin? * Injecting insulin/other injectables? * Sharps disposal Continuous blood glucose monitoring (if applicable) Hypoglycemia and Hyperglycemia * Signs and symptoms? * Causes?? * Treatment? * Preventing hypoglycemia? * When to seek medical attention Target Goals: * Blood glucose targets and how you feel when your blood glucose is in and out of your target ranges. * Monitoring and knowing your A1C. * What can make blood glucose go up and down and preventing high and low blood glucose. * Review of blood sugar targets in expected goal range and outside of expected goal range. * Problem solving and preventing hyper/hypoglycemia. * Sick day management of diabetes. * Using blood sugar results in decision making process in managing diabetes. ?Patient was receptive to information provided and participated in the discussion. Asked?appropriate questions and demonstrated good understanding of the topics discussed.? ? Educational Materials: The patient was provided with the following written educational materials: Hypoglycemic handout Smart Goal Assessment:? Patient will bring meter [facility] Pt met goal less than 25% New Smart Goal: Patient will bring meter to every visit at [facility] Patient Response to instructions: Comprehension of Instructions: fair Readiness to make changes:? Contemplation How confident they feel about making changes:poor Portions of this note were created using voice recognition software, please excuse any words or phrases that may have been misinterpreted. Coding Level of Care Code Est Pt Level 1 (85403) Diagnoses Hyperlipidemia associated with type 2 diabetes mellitus E11.69; E78.5
--- OUTSIDE RECORDS SUMMARY | 2024-07-26 15:18 | XMS_ITS | Clinical Summary ---
Author Organization [facility] Address [address] [place] [address] Phone Care Team Providers Care Gel Coater Name Role Phone Mario Arreguin MD Primary Care Provider [phone] Allergies Active Allergy Reactions Criticality Noted Date Comments Penicillins 02/02/2023 Medications apixaban (ELIQUIS) 5 MG tablet Take 5 mg by mouth in the morning and 5 mg in the evening. Active aspirin (ST FLORIN) 81 MG EC tablet Take 81 mg by mouth 1 (one) time each day Active atorvastatin (LIPITOR) 80 MG tablet Take 80 mg by mouth 1 (one) time each day Active carvedilol (COREG) 3.125 MG tablet Take 3.125 mg by mouth in the morning and 3.125 mg in the evening. Take with meals. Active insulin glargine (LANTUS) 100 UNIT/ML injection Inject under the skin every night Active valsartan (DIOVAN) 80 MG tablet Take 80 mg by mouth 1 (one) time each day Active Social History Tobacco Use Types Packs/Day Years Used Date Smoking Tobacco: Every Day Pipe Cigars Alcohol Use Standard Drinks/Week Comments Yes 0 (1 standard drink = 0.6 oz pur e alcohol) Sex and Gender Information Value Date Recorded Sex Assigned at Not on file Legal Sex Male 9:04 AM EDT Gender Identity Not on file Sexual Orientation Not on file Plan of Treatment Health Maintenance Due Date Last Done Comments Pneumococcal Vaccine: 50+ Ye ars (1 of 2 - PCV) 02/13/1972 Colorectal Cancer Screening: Annual FOBT 2002 Colorectal Cancer Screening: Colonoscopy 2002 Colorectal Cancer Screening: Sigmoidoscopy 2002 Influenza Vaccine (Season Ended) 2024 Hepatitis B Vaccine Aged Out No longe r eligible based on patient's age to complete this topic [place] [address] [place] [address] ([id number]) [facility] ([id number]) Care Teams Gel Coater Relationship Specialty Start Date End Date Mario Arreguin MD [address] [place] [address], [address] [place] [address] PCP - General Internal Medicine 06/16/22
--- OUTSIDE RECORDS SUMMARY | 2024-07-26 15:18 | XMS_ITS | Continuity of Care Document ---
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 Unspecified Restorative Procedure, By Re port Limited Oral Evaluation-Problem Focused PORCELAIN FUSED TO BASE/IMP PFM TEMPORARY CROWN PFM/PREP AND FINAL IMP Resin-Based Composite-Four Or More Surfa jf Or Inv Anterior (Excluding Final Lutheran) J RCT IN PROCESS Intraoral-Periapical First Film 013 Palliative (Emergency) Treatment Of Kemper al Pain Oral Hygiene Instructions Periodontal Scaling [...] Provider Providers Copied on Encounter Nicholas Marcus [facility], [address], [place], [id number], tel:[phone] [facility] 5 No Information Nicholas Marcus [facility], [address], [place], [place], [id number], tel:[phone] [facility] 4 No Information Nicholas Marcus [facility], [address], [place], [place], [id number], [place] tel:[phone] [facility] Sep-0 7- 4 No Information [facility], [address], [place], [place], [id number], [place] tel:[phone] [facility] 4 No Information [facility], [address], [place], [place], [id number], [place] tel:[phone] [facility] 0 - 4 No Information [facility], [address], [place], [place], [id number], [place] tel:[phone] [facility] 4 No Information [facility], [address], [place], [place], [id number], [place] tel:[phone] [facility] Jun- 4 No Information [facility], [address], [place], [place], [id number], [place] tel:[phone] [facility] 4 Jaycee Lara. [address] [place] [address], [id number], [place]. tel:[phone] [facility], [address], [place], [place], [id number], [place] tel:[phone] [facility] Jun-0 4 No Information [facility], [address], [place], [place], [id number], [place] tel:[phone] [facility] 4 No Information [facility], [address], [place], [place], [id number], [place] tel:[phone] [facility] 0 4 No Information [facility], [address], [place], [place], [id number], [place] tel:[phone] [facility] 2- 3 No Information [facility], [address], [place], [place], [id number], [place] tel:[phone] [facility] 1- 3 No Information [facility], [address], [place], [place], [id number], [place] tel:[phone] [facility] 8 3 No Information [facility], [address], [place], [place], [id number], [place] tel:[phone] [facility] 3 No Information [facility], [address], [place], [place], [id number], [place] tel:[phone] [facility] 3- 3 No Information [facility], [address], [place], [place], [id number], [place] tel:[phone] [facility] 7- 3 No Information [facility], [address], [place], [place], [id number], [place] tel:[phone] [facility] 3 No Information Family History Family Member Type Diagnosis Age At Onset No Information Payers Payer name Insurance type Covered democrat ID Authoriza tion(s) No Information Social History [...]
--- OUTSIDE RECORDS SUMMARY | 2024-07-26 15:19 | XMS_ITS | Clinical Summary ---
Author Organization [address] [place] [address] [place] [address] Phone Care Team Providers Care Home Health Care Worker Name Role Phone Mario Arreguin MD Primary Care Provider [phone] Allergies Active Allergy Reactions Criticality Noted Date Comments Penicillin 06/06/2024 Medications atorvastatin (LIPITOR) 80 mg tablet Take 1 tablet (80 mg total) by mouth 1 (one) time each day. at bedtime. 5 Active dilTIAZem SR (CARDIZEM SR) 60 mg 12 hr capsule Take 1 capsule (60 mg total) by mouth 2 (two) times a day. 5 Active Lantus Solostar U-100 Insulin 100 unit/mL (3 mL) injection pen INJECT 40 UNITS UNDER THE SKIN EVERY EVENING 5 Active aspirin 81 mg EC tablet Take 1 tablet (81 mg total) by mouth 1 (one) time each day. Active omega 8-cgc-ort-fish oil (Fish OiL) 1,000 (120-180) mg capsule Active carvediloL (COREG) 6.25 mg tablet Take 1 tablet (6.25 mg total) by mouth 2 (two) times a day with meals. 180 each 1 5 12/04/19 25 Active dabigatran etexilate (Pradaxa) 150 mg capsule Take 1 capsule (150 mg total) by mouth 2 (two) times a day. Do not crush or chew. 180 each 1 5 01/11/20 25 Active valsartan (DIOVAN) 80 mg tablet Take 1 tablet (80 mg total) by mouth 1 (one) time each day. 90 tablet 1 5 Active apixaban (ELIQUIS) 5 mg tablet Take 1 tablet (5 mg total) by mouth 2 (two) times a day. 180 tablet 3 5 07/15/19 25 Discontinu ed(Prescri arden Discontinu ed) valsartan (DIOVAN) 80 mg tablet Take 1 tablet (80 mg total) by mouth 1 (one) time each day. 5 07/20/19 Discontinu ed(Reorder ) Active Problems Problem Noted Date Diagnosed Date Coronary artery disease invo lving nenana coronary artery of nenana heart without angina pectoris 06/05/2024 Assessment & Plan (06/07/2024 7:47 AM EDT): Patient has a history of coronary disease status post non-STEMI in March 2022 status post CABG times 23 May 2022. Currently, he denies any exertional or anginal symptoms. He continues on medical therapy with aspirin, statin and beta-sarath. Patient advised to seek emergency medical attention by calling 911 if they were to develop severe dyspnea, chest pain that did not resolve with rest or nitroglycerin, or if they were to faint. HFrEF (heart failure with re duced ejection fraction) ([facility] V24, [facility] V28) 06/05/2024 Assessment & Plan (06/07/2024 7:47 AM EDT): Patient has a history of heart failure with reduced ejection fraction with evidence of recovery in LVEF. Prior to his CABG, his LVEF was noted to be 35 to 40% in May 2022. Postoperative echocardiogram showed normalization of LVEF 55 to 60%. Echocardiogram at [facility] at the time of hospitalization when patient was noted to be in atrial fibrillation with RVR, LVEF was noted to be reduced at 40 to 45%. His most recent echocardiogram May 2023 showed LVEF normal 55 to 60%. Currently, he denies any symptoms of acute heart failure and appears euvolemic on physical exam. He continues on medical therapy with valsartan and will increase his carvedilol as outlined below. We also discussed the possibility of undergoing a cardiac MRI for further evaluation of infiltrative disease as a cause of his history of heart failure with reduced ejection fraction. Echocardiograms in the past also showed moderate LV wall thickness. He reports he is unable to do any MRIs due to severe claustrophobia despite medications in the past as well. Therefore, recommend he undergo cardiac PYP scan to rule amyloidosis as a cause given his history of atrial fibrillation, moderate LVH and HFrEF. Orders: Immunofixation electrophoresis, IGG, IGA, IGM; Future Immunofixation, urine; Future Nuclear cardiac amyloid study (CV Performed); Future [place]-lambda free light chains, quantitative; Future Longstanding persistent atri al fibrillation (CMS/HCC V24, CMS/HCC V28) 06/05/2024 Assessment & Plan (06/07/2024 7:47 AM EDT): Patient has a history of atrial fibrillation status post cardioversion May 2023 and October 2023. On today's visit, the patient's heart rate is mildly elevated and irregular. He denies any perception of atrial fibrillation including dizziness, palpitations or heart racing. At this point, recommend he increase his carvedilol to 6.25 mg orally twice daily. We discussed referring him to electrophysiology for further evaluation and management for possible ablation/antiarrhythmics given multiple cardioversions with reoccurrence. He will continue his current dose of diltiazem. He agrees to see Dr. King as arranged for June. On the other hand, during today's visit we had a long discussion regarding anticoagulation. Patient's CHADSVASC score is 5 representing a 7.2% risk of thromobembolism. Anticoagulation is indicated to reduce risk of stroke. We discussed the importance of adherence to anticoagulation given his elevated stroke risk. His spouse was also present over the phone during the time of the visit. We discussed the possibility of initiating Warfarin as an alternative to DOAC's due to the financial burden. We discussed that this would require INR monitoring and being set up with our warfarin clinic. At the end of the discussion, the patient and spouse do not want to proceed with warfarin at this time despite my recommendation. They have reached out to the patient's senior executive assistant program for Eliquis and their request was denied. Their plan is to reach back out to the insurance company to determine the deductible prior to making a decision as they would like to continue paying for eliquis at this time. He will call our office once the final decision is made regarding continuing eliquis or transitioning to warfarin. Mixed hyperlipidemia 06/05/2024 Assessment & Plan (06/07/2024 7:47 AM EDT): Patient has history of hyperlipidemia as well as history of coronary artery disease. His last fasting lipid panel showed an LDL of 63 and at goal. He will continue his current dose of atorvastatin as prescribed. 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 07/07/2024 [address]phone [facility] [address] [place] [address] Gokul Easley MD eliquis --overide (Eliquis override); call insurance (Called insurance ) 06/20/2024 [address]phone [facility] [address] [place] [address] Leesa Nolasco NP scheduling checkout 06/17/2024 Telephone [facility] [address] [place] [phone] Harvey King MD called pt to r/s his 06/27/[address] King 06/06/2024 3:10 PM EDT Office Visit [facility] [address] [place] [address] Leesa Nolasco NP HFrEF (heart failure with reduced ejection fraction) (CMS/HCC V24, CMS/HCC V28) (Primary Dx); Coronary artery disease involving nenana coronary artery of nenana heart without angina pectoris; Longstanding persistent atrial fibrillation (CMS/HCC V24, CMS/HCC V28); Mixed hyperlipidemia 05/09/2024 Telephone [facility] Cardiology [facility] [address] [place] [id number] Gokul Easley MD [place] Form/Eliquis from Last 3 Months Medical History Medical History Date Comments Class 2 obesity DX:Class 2 obesi ty Diabetes mellitus, type 2 (C MS/HCC V24, CMS/HCC V28) DX:Diabetes mellitus, type 2 (HCC) Social History Tobacco Use Types Packs/Day Years Used Date Smoking Tobacco: Former Smokeless Tobacco: Never Alcohol Use Standard Drinks/Week Comments Yes 0 (1 standard drink = 0.6 oz pur e alcohol) occ Sex and Gender Information Value Date Recorded Sex Assigned at Not on file Legal Sex Male 6:37 AM EST Gender Identity Not on file Sexual Orientation Not on file Obstetrics History Last Filed Vital Signs Vital Sign Reading Time Taken Comments Blood Pressure 128/60 06/06/2024 3:16 PM EDT Pulse 100 06/06/2024 3:16 PM EDT Temperature - - Respiratory Rate - - Oxygen Saturation 94% 06/06/2024 3:16 PM EDT Inhaled Oxygen Concentration - - Weight 116 kg (255 lb 8 oz) 06/06/2024 3:16 PM E DT Height 170.2 cm (5' 7 ) 06/06/2024 3:16 PM EDT Body Mass Index 40.02 06/06/2024 3:16 PM EDT Plan of Treatment Upcoming Encounters Date Type Department Care Team (Late st Contact Info) Description 08/16/2024 8:40 AM EDT Consult [facility] Cardiology [facility] [address] [place] [address] Harvey King MD [address] [place], [place] [id number] Health Maintenance Due Date Last Done Comments DTaP,Tdap,and Td Vaccines (1 - Tdap) 02/13/1972 Pneumococcal Vaccine: 50+ Years (1 of 1 - PCV) 2003 Zoster Vaccines (1 of 2) 2003 RSV Immunization Adult Patients (1 - Risk 60-74 years 1-dose series) 2013 Abdominal Aortic Aneurysm (AAA) Screen 02/22/2022 Cholesterol Screening (Lipid Panel) 02/22/2022 Colorectal Cancer Screening: Colonoscopy 02/22/2022 Depression Screening 02/22/2022 Falls Risk Assessment 02/22/2022 Hepatitis C Screening 02/22/2022 Medicare Annual Wellness Visit 02/22/2022 Social Influencers of Health Screening 02/22/2022 Hypertension/CHF/CAD Annual BMP Blood Test 04/20/2023 COVID-19 Vaccine (2023-2 5 season) 2023 03/20/2021, 06/13/2020, 05/16/2020 Influenza Vaccine (Season Ended) 2024 HIB Vaccines Aged Out No longer eligi ble based on patient's age to complete this topic HPV Vaccines Aged Out No longer eligi ble based on patient's age to complete this topic Hepatitis A Vaccines Aged Out No long er eligible based on patient's age to complete this topic Hepatitis B Vaccines Aged Out No long er eligible based on patient's age to complete this topic IPV Vaccines Aged Out No longer eligi ble based on patient's age to complete this topic MMR Vaccines Aged Out No longer eligi ble based on patient's age to complete this topic Meningococcal ACWY Vaccine Aged Out N o longer eligible based on patient's age to complete this topic Meningococcal B Vaccine Aged Out No l onger eligible based on patient's age to complete this topic RSV Immunization Patients Under 20 months Aged Out No longer eligible b ased on patient's age to complete this topic Varicella Vaccines Aged Out No longer eligible based on patient's age to complete this topic Insurance [employer] - [place] MEDICARE ADVANTAGE Care Teams Home Health Care Worker Relationship Specialty Start Date End Date Mario Arreguin MD [address] [place] [id number] PCP - General 09/28/16
== END 2024-07-26 14:44 | disposition home or self-care (01) ==
LOC: HO.ENCR 14:03
PROVIDERS: PCP Internal Medicine; Visit Provider Registered Nurse Diabetes Educator
DX: E11.69 Type 2 diabetes mellitus with other specified complication (principal); E78.5 Hyperlipidemia, unspecified

== ENCOUNTER → 2024-07-26 14:02 | Outpatient (BNVA) | payer MEDICARE, SELFPAY | PROVIDERS: PCP Internal Medicine; Visit Provider Registered Nurse Diabetes Educator | DX: E11.69 Type 2 diabetes mellitus with other specified complication (principal); E78.5 Hyperlipidemia, unspecified | CPT/HCPCS: 99211 ==

== ENCOUNTER 2024-08-22 14:57 | Outpatient (AMB) | payer OTHER, MEDICAID, SELFPAY ==
--- NOTE | 2024-08-22 08:18 | A.OFFVIS_ITS ---
Vital Signs 08/22/24 15:00 Height 5 ft 5 in Weight 244 lb 11.41 oz BMI 40.7 BP 118/68 Blood Pressure Location Rt brachial Position Sitting Pulse 136 H Pulse Source Pulse Oximeter Oxygen Delivery Method Room Air Intake Visit Reasons: DM Intake Note: Patient presents today for a follow-up on T2DM: Patient has been off of insulin for the last 2 weeks due to a high co-payment. Last Diabetic Eye exam: Within the year no retinopathy Last Podiatry Visit: Does not see a Chief Clinical Officer Most recent HgA1C: 8.4%, 08/22/2024 Random Glucose: 238 mg/dL, Today Design Engineer Required: No Accompanied by: Self / Same As Patient Allergies Penicillins Allergy (Unknown, Verified 02/22/24 14:44) Anaphylaxis Medication List - Last Reconciled 04/19/24 by Trina Lucas, AB apixaban (Eliquis) 5 mg PO BID atorvastatin 80 mg PO BEDTIME blood sugar diagnostic (OneTouch Verio test strips) As directed carvedilol 3.125 mg PO BID diltiazem HCl ER 60 mg PO BID furosemide 40 mg PO DAILY insulin glargine (Basaglar KwikPen U-100 Insulin) 20 units subcut QAM lancets (OneTouch Delica Plus Lancet) As directed naproxen 375 mg PO BID pen needle, diabetic (BD Ultra-Fine Short Pen Needle) As directed semaglutide (Ozempic) 1 mg (0.75 mL) subcut QWEEK valsartan 80 mg PO DAILY HPI Comments Details: 69 YO male who is seen in follow up for T2DM. He was seen as an initial diabetes consult 1 year ago at which time mounjaro was prescribed. , Hemoglobin A1c 08/22/2024, previous 6.5% February 2025 when he was taking Mounjaro. A1c 08/22/2024 8.4%. Was initially started on treatment several years ago prior to having a CABG x4. Had been on metformin with symptoms of fatigue and feeling poorly. He does not remember being on jardiance or having side effects to this however outside medical record indicate he was on Jardiance. He stopped Ozempic due to inability to afford co-pay. Lantus insulin increased significantly in co-pay. And I would work with his pharmacist to send a number of different insulins all of which had higher co-pay. His insurance called today and basaglar will be covered for 35$ per month. He will pick this up when available from the pharmacy. Current regimen basaglar 30 units will try for ozempic through patient assistance program Checks sugars [1] times per day. Average sugar: 160-170 occ 200 He has been off both Mounjaro and insulin Reports low sugars [none]. Treats lows with several pieces of candy,keeps crackers in the car]. Has eyes checked yearly, , denies retinopathy. Denies neuropathy Denies nephropathy, on ARB 10/12/2023 EGFR 59 Has HLD, on statin. Last LDL 81 on 10/12 23 [Has CAD s/p cabg several years ago,Has had carotid surgery. Diet: Reports he has lost 80 pounds over a few years. Doesn't eat any particular diet, uses portion control loves cheese has been seen by diabetes education. [facility] Medical History Non-STEMI (non-ST elevated myocardial infarction) Obesity Carotid stenosis Coronary artery disease Atrial fibrillation Hyperlipidemia associated with type 2 diabetes mellitus Type 2 diabetes mellitus not at goal Surgical History History of surgery Hx of tonsillectomy Hx of appendectomy History of quadruple bypass Family History Mother Family history unknown Father Heart problem Social History Alcohol intake: current Alcohol intake frequency: holidays/special occasions only Patient Tobacco Use Status: Current someday Tobacco user Physical Exam Vital Signs: Last Vital Signs Pulse 136 H 08/22/24 15:00 BP 118/68 08/22/24 15:00 Oxygen Delivery Method Room Air 08/22/24 15:00 BMI result Body Mass Index 40.7 Const Other: Absence of Cushingoid features. Absence of acromegalic features. Neck exam reveals nl size thyroid about 15 gms. No thyroid nodules palpable. Heart S1 S2, Reg R/R. No M/R G. Skin exam reveals absence of vitiligo or acanthosis nigricans. No edema Visual exam of foot performed. No ulcerations or open lesions. No inter digit maceration or fissuring. No onychomycosis, no callouses. Sensation intact Results AMB Hemoglobin A1c AMB Hemoglobin A1c 8.4 % Last Edit by СВЕТЛАНА Zarate on 08/22/24 15:21 Assessment & Plan Assessment & Plan (1) Type 2 diabetes mellitus not at goal: Code(s): E11.9 - Type 2 diabetes mellitus without complications Category: Medical Plan: 69-year-old type 2 diabetic who previously was well-controlled on Mounjaro and low-dose insulin who has had her increase in A1c to 8.4% secondary to not being able to afford his medications. He is insurance company called and they are now covering Basaglar at a 35 dollar per month co-pay. He will plan to fill out patient assistance program to get Ozempic and drop them off of the office for me. As his A1c was down to 6.5% when he was able to get medications we should have no difficulty getting him back there again. The patient had an opportunity to ask questions regarding treatment plan. The patient expressed understanding and agreement with the above treatment plan. The patient is aware they should contact our office by phone for worsening glucose readings or for any low blood sugars which may warrant a change in diabetes medication. Compliance is encouraged with medications and any followup testing/consults which may have been ordered. Orders: Orders AMB Hemoglobin A1c Today E11.9 - Type 2 diabetes mellitus without complications Medications: Discontinued insulin NPH isoph U-100 human (Humulin N NPH U-100 Insulin KwikPen) Discontinued Reason: No Longer Medically Relevant 15 units (0.15 mL) subcut BID 30 days 9 mL 6RF Coding Level of Care Code Est Pt Level 4 (19897) Complex EM visit Add On G2211 Diagnoses Type 2 diabetes mellitus not at goal E11.9 Time Spent (min) 30 Comment Time spent reviewing labs/provider notes, face to face, chart doc
[2024-08-22 15:00] VITALS: BP 118/68; PULSE 136; BMI 40.7
[2024-08-22 15:11] LABS: Glucose, Whole Blood 238 mg/dL (60-115)
--- OUTSIDE RECORDS SUMMARY | 2024-08-22 16:38 | XMS_ITS | Clinical Summary ---
Author Organization [facility] Address [address] [place] [address] Phone Care Team Providers Care Professional Nursing Tutor Name Role Phone Mario Arreguin MD Primary Care Provider [phone] Allergies Active Allergy Reactions Criticality Noted Date [...] patient's age to complete this topic [place] [address] ([id number]) [facility] ([id number]) Care Teams Professional Nursing Tutor Relationship Specialty Start Date End Date Mario Arreguin MD [address] [place] [address], [address] [place] [address] PCP - General Internal Medicine 06/16/22
== END 2024-08-22 15:29 | disposition home or self-care (01) ==
LOC: HO.ENCR 14:58
PROVIDERS: PCP Internal Medicine; Visit Provider Nurse Practitioner Adult Health
DX: E11.9 Type 2 diabetes mellitus without complications (principal)
CPT/HCPCS: 99214; G2211

== ENCOUNTER → 2024-08-22 14:57 | Outpatient (BNVA) | payer MEDICARE, SELFPAY | PROVIDERS: PCP Internal Medicine; Visit Provider Nurse Practitioner Adult Health | DX: E11.9 Type 2 diabetes mellitus without complications (principal) | CPT/HCPCS: 82947; 83036; 99212 ==

== ENCOUNTER 2024-11-01 13:49 | Outpatient (AMB) | payer MEDICARE, SELFPAY ==
--- OUTSIDE RECORDS SUMMARY | 2014-08-21 05:30 | XMS_ITS | Continuity of Care Document ---
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 Unspecified Restorative Procedure, By Re port Limited Oral Evaluation-Problem Focused PORCELAIN FUSED TO BASE/IMP PFM TEMPORARY CROWN PFM/PREP AND FINAL IMP Resin-Based Composite-Four Or More Surfa jf Or Inv Anterior (Excluding Final Druze) J RCT IN PROCESS Intraoral-Periapical First Film 013 Palliative (Emergency) Treatment Of [place] al Pain Oral Hygiene Instructions Periodontal Scaling [...] Provider Providers Copied on Encounter Nicholas Marcus [facility], [address], [place], [id number], tel:[phone] [facility] 5 No Information iNcholas Marcus [facility], [address], [place], [place], [id number], tel:[phone] [facility] 4 No Information Nicholas Marcus [facility], [address], [place], [place], [id number], [place] tel:[phone] [facility] Sep-0 7- 4 No Information [facility], [address], [place], [place], [id number], [place] tel:[phone] [facility] 4 No Information [facility], [address], [place], [place], [id number], [place] tel:[phone] [facility] 0 - 4 No Information [facility], [address], [place], [place], [id number], [place] tel:[phone] [facility] 4 No Information [facility], [address], [place], [place], [id number], [place] tel:[phone] [facility] Jun- 4 No Information [facility], [address], [place], [place], [id number], [place] tel:[phone] [facility] 4 Jaycee Lara. [address] [place] [address], [id number], [place]. tel:[phone] [facility], [address], [place], [place], [id number], [place] tel:[phone] [facility] Jun-0 4 No Information [facility], [address], [place], [place], [id number], [place] tel:[phone] [facility] 4 No Information [facility], [address], [place], [place], [id number], [place] tel:[phone] [facility] 0 4 No Information [facility], [address], [place], [place], [id number], [place] tel:[phone] [facility] 2- 3 No Information [facility], [address], [place], [place], [id number], [place] tel:[phone] [facility] 1- 3 No Information [facility], [address], [place], [place], [id number], [place] tel:[phone] [facility] 8 3 No Information [facility], [address], [place], [place], [id number], [place] tel:[phone] [facility] 3 No Information [facility], [address], [place], [place], [id number], [place] tel:[phone] [facility] examination 3- 3 No Information [facility], [address], [place], [place], [id number], [place] tel:[phone] [facility] 7- 3 No Information [facility], [address], [place], [place], [id number], [place] tel:[phone] [facility] 3 No Information Family History Family Member Type Diagnosis Age At Onset No Information Payers Payer name Insurance type Covered constitution party ID Authoriza tion(s) No Information Social History Type Description Quantity Date Captured Comments Alcohol Use Details Unknown Caffeine Use Details Unknown Tobacco Use Status No Information Smoking Status No Information Sex Male Chief Complaint And Reason For Visit No Information Reason For Referral Reason For Referral No Information Plan Of Treatment Date Type Action Status Goal FIT-DNA. Due on due Goal CT-Colonography. Due on due Goal Unhealthy drug use screening . Due on due Goal Zoster vaccine (). Due on due Goal FOBT. Due on due Goal Hepatitis C Screening. Due o n due Goal Document SOGI Information. D ue on due Goal Td vaccine. Due on 15 due Goal Zoster vaccine. Due on due Goal Lipid panel. Due on due [...]
--- OUTSIDE RECORDS SUMMARY | 2024-11-01 14:11 | XMS_ITS | Clinical Summary ---
Author Organization [facility] Address [address] [place] [address] Phone Care Team Providers Care Radiologic Electronic Specialist Name Role Phone Mario Arreguin MD Primary Care Provider [phone] Allergies Active Allergy Reactions Criticality Noted Date [...] Colorectal Cancer Screening: Sigmoidoscopy 2002 Influenza Vaccine (#1) 2024 Hepatitis B Vaccine Aged Out No longe r eligible based on patient's age to complete this topic [place] [address] ([id number]) [facility] ([id number]) Care Teams Radiologic Electronic Specialist Relationship Specialty Start Date End Date Mario Arreguin MD [address] [place] [address], [address] [place] [address] PCP - General Internal Medicine 06/16/22
--- OUTSIDE RECORDS SUMMARY | 2024-11-01 14:12 | XMS_ITS | Clinical Summary ---
Author Organization [address] [place] [address] [place] [phone] Phone Care Team Providers Care Media Arts Professor Name Role Phone Mario Arreguin MD Primary Care Provider [phone] Allergies Active Allergy Reactions Criticality Noted Date Comments Penicillin 06/06/2024 Medications atorvastatin (LIPITOR) 80 mg tablet Take 1 tablet (80 mg total) by mouth 1 (one) time each day. at bedtime. 04/05/2024 Active dilTIAZem SR (CARDIZEM SR) 60 mg 12 hr capsule Take 1 capsule (60 mg total) by mouth 2 (two) times a day. 04/06/2024 Active Lantus Solostar U-100 Insulin 100 unit/mL (3 mL) injection pen INJECT 40 UNITS UNDER THE SKIN EVERY EVENING 04/06/2024 Active aspirin 81 mg EC tablet Take 1 tablet (81 mg total) by mouth 1 (one) time each day. Active omega 6-mfx-xsh-fish oil (Fish OiL) 1,000 (120-180) mg capsule Active carvediloL (COREG) 6.25 mg tablet Take 1 tablet (6.25 mg total) by mouth 2 (two) times a day with meals. 180 each 1 06/06/2024 Active dabigatran etexilate (Pradaxa) 150 mg capsule Take 1 capsule (150 mg total) by mouth 2 (two) times a day. Do not crush or chew. 180 each 1 07/14/2024 Active valsartan (DIOVAN) 80 mg tablet Take 1 tablet (80 mg total) by mouth 1 (one) time each day. 90 tablet 1 07/19/2024 Active Active Problems Problem Noted Date Diagnosed Date Class 2 obesity 08/16/2024 Lateral epicondylitis of left elbow 07/28/2024 Coronary artery disease invo lving mcgrath coronary artery of mcgrath heart without angina pectoris 06/05/2024 Assessment & Plan (08/16/2024 10:38 AM EDT): Orders: ECG 12 lead Assessment & Plan (06/07/2024 7:47 AM EDT): [...] (heart failure with re duced ejection fraction) (CMS/HCC V24, CMS/HCC V28) 06/05/2024 Assessment & Plan (08/16/2024 10:38 AM EDT): Orders: ECG 12 lead Assessment & Plan (06/07/2024 7:47 AM EDT): Patient has a history of heart failure with reduced ejection fraction with evidence of recovery in LVEF. Prior to his CABG, his LVEF was noted to be 35 to 40% in May 2022. Postoperative echocardiogram showed normalization of LVEF 55 to 60%. Echocardiogram at [facility] at the time of hospitalization when [...] Nuclear cardiac amyloid study (CV Performed); Future [place]-lambda free light chains, quantitative; Future Longstanding persistent atri al fibrillation (CMS/HCC V24, CMS/HCC V28) 06/05/2024 Assessment & Plan (08/16/2024 10:38 AM EDT): Orders: ECG 12 lead Assessment & Plan (06/07/2024 7:47 AM EDT): [...] of diltiazem. He agrees to see Dr. Simons as arranged for June. On the other [...] They have reached out to the patient's doctor's assistant program for Eliquis and their request [...] Encounters Date Type Department Care Team Description 10/11/2024 Telephone [facility] [address] [place] [address] [address] [place] [address] Annika Ramos NP Referral 09/29/2024 Telephone [facility] [address] [place] [address] [address] [place] [address] Annika Ramos NP Referral (Hem/Onc) 09/27/2024 Telephone [facility] [address] [place] [address] [place] [address] Gokul Easley MD 09/25/2024 10:35 AM EDT Lab Draw Station - [address] [facility] [facility] [place] [phone] Atrial fibrillation (CMS/HCC V24, CMS/HCC V28); HFrEF (heart failure with reduced ejection fraction) (CMS/HCC V24, CMS/HCC V28) 08/17/2024 Telephone [facility] [address] [place] [phone] Harvey Simons MD Procedure (PFA Afib Ablation 7.10.25) 08/16/2024 8:40 AM EDT Consult [facility] [address] [place] [address] Harvey Simons MD Coronary artery disease involving mcgrath coronary artery of mcgrath heart without angina pectoris (Primary Dx); HFrEF (heart failure with reduced ejection fraction) (CMS/HCC V24, CMS/HCC V28); Longstanding persistent atrial fibrillation (CMS/HCC V24, CMS/HCC V28) from Last 3 Months Medical History Medical History Date Comments Class 2 obesity DX:Class 2 obesi ty Diabetes mellitus, type 2 (C MS/HCC V24, CMS/HCC V28) DX:Diabetes mellitus, type 2 (HCC) Social History Tobacco Use Types Packs/Day Years Used Date Smoking Tobacco: Some Days Cigarettes Cigars Smokeless Tobacco: Never Tobacco Cessation:Ready to Q uit: Not Asked; Counseling Given: Not Answered Alcohol Use Standard Drinks/Week Comments Yes 0 (1 standard drink = 0.6 oz pur e alcohol) occ Sex and Gender Information Value Date Recorded Sex Assigned at Not on file Legal Sex Male 6:37 AM EST Gender Identity Not on file Sexual Orientation Not on file Obstetrics History Last Filed Vital Signs Vital Sign Reading Time Taken Comments Blood Pressure 130/84 08/16/2024 8:50 AM EDT Pulse 130 08/16/2024 8:50 AM EDT Temperature - - Respiratory Rate - - Oxygen Saturation 91% 08/16/2024 8:50 AM EDT Inhaled Oxygen Concentration - - Weight 113 kg (248 lb 3.2 oz) 08/16/2024 8:50 AM EDT Height 170.2 cm (5' 7 ) 08/16/2024 8:50 AM EDT Body Mass Index 38.87 08/16/2024 8:50 AM EDT Plan of Treatment Upcoming Encounters Date Type Department Care Team (Late st Contact Info) Description 11/22/2024 2:40 PM EDT Office Visit [facility] [address] [facility] [address] [place] [phone] Tabby Manuel PA [address] [place] [address] 12/06/2024 3:00 PM EDT Office Visit [facility] Hematology Oncology [address] [place] [address] Yane-Keegan Stafford MD [address] [place] [address] 02/05/2025 12:30 PM EST Ancillary Procedure [facility] [address] [facility] [address] [place] [address] Health Maintenance Due Date Last Done Comments DTaP,Tdap,and Td Vaccines (1 - Tdap) 02/13/1972 Pneumococcal Vaccine: 50+ Years (1 of 2 - PCV) 02/13/1972 Zoster Vaccines (1 of 2) 2003 RSV Immunization Adult Patients (1 - Risk 60-74 years 1-dose series) 2013 Abdominal Aortic Aneurysm (AAA) Screen 02/22/2022 Cholesterol Screening (Lipid Panel) 02/22/2022 Colorectal Cancer Screening: Colonoscopy 02/22/2022 Falls Risk Assessment 02/22/2022 Hepatitis C Screening 02/22/2022 Medicare Annual Wellness Visit 02/22/2022 Social Influencers of Health Screening 02/22/2022 COVID-19 Vaccine (4 - 2023-2 5 season) 2023 03/20/2021, 06/13/2020, 05/16/2020 Depression Screening 03/22/2024 Influenza Vaccine (#1) 2024 Hypertension/CHF/CAD Annual BMP Blood Test 09/25/2025 09/25/2024 HIB Vaccines Aged Out No longer eligi [...] on patient's age to complete this topic Procedures Procedure Name Priority Date/Time Associated Diagnosis Comments VA IMMUNOFIXATION ELECTROPHORESIS SERUM Routine 09/25/2024 10:33 AM EDT HFrEF (heart failure with reduced ejection fraction) (CMS/HCC V24, CMS/HCC V28) IMMUNOGLOBULINS IGG, IGA, IGM Routine 09/25/2024 10:33 AM EDT HFrEF (heart failure with reduced ejection fraction) (CMS/HCC V24, CMS/HCC V28) IMMUNOFIXATION ELECTROPHORESIS Routine 09/25/2024 10:33 AM EDT HFrEF (heart failure with reduced ejection fraction) (CMS/HCC V24, CMS/HCC V28) KAPPA-LAMBDA QUANTITATIVE FREE LIGHT CHAINS Routine 09/25/2024 10:33 AM EDT HFrEF (heart failure with reduced ejection fraction) (CMS/HCC V24, CMS/HCC V28) IMMUNOFIXATION ELECTROPHORESIS Routine 09/25/2024 10:33 AM EDT HFrEF (heart failure with reduced ejection fraction) (CMS/HCC V24, CMS/HCC V28) BASIC METABOLIC PANEL Routine 09/25/2024 10:33 AM EDT Atrial fibrillation (CMS/HCC V24, CMS/HCC V28) PROTHROMBIN TIME WITH INR Routine 09/25/2024 10:33 AM EDT Atrial fibrillation (CMS/HCC V24, CMS/HCC V28) COMPLETE BLOOD COUNT Routine 09/25/2024 10:33 AM EDT Atrial fibrillation (CMS/HCC V24, CMS/HCC V28) ECG 12-LEAD Routine 08/16/2024 9:01 AM EDT Coronary artery disease involving mcgrath coronary artery of mcgrath heart without angina pectoris HFrEF (heart failure with reduced ejection fraction) (CMS/HCC V24, CMS/HCC V28) Longstanding persistent atrial fibrillation (CMS/HCC V24, CMS/HCC V28) from Last 3 Months Results * Pathologist Review Immunofixation (09/25/2024 10:33 AM EDT) Pathologist [facility] Pathologist Interpretation Reviewed by Leslie Everett MD 09/26/2024 1:49 PM EDT [facility] Blood Venous blood specimen / Unknown Venipuncture / Unknown 09/25/2024 10:33 AM EDT 09/25/2024 10:45 AM EDT Leesa Nolasco NP LAB BLOOD ORDERABLES Final Result [facility] [address] [place] [address], * (ABNORMAL) [place]-lambda free light chains, quantitative (09/25/2024 10:33 AM EDT) [place] Free Light Chain 6.10(H) 0.33 - 1.94 mg/dL 09/27/2024 11:47 AM EDT [facility] Lambda Free Light Chain 3.00(H) 0.57 - 2.63 mg/dL 09/27/2024 11:47 AM EDT [facility] [place]/Lambda FLC Ratio 2.03(H) 0.26 - 1.65 09/27/2024 11:47 AM EDT [facility] Comment: Test performed at [facility], [address] , [place] [address] Camille Rodriguez MD, PhD - Biometrics Consultant Blood Venous blood specimen / Unknown Venipuncture / Unknown 09/25/2024 10:33 AM EDT 09/25/2024 10:45 AM EDT Leesa Nolasco SALES REP LAB BLOOD ORDERABLES Final Result [facility] [address] [place] [address] * (ABNORMAL) Prothrombin time with INR (09/25/2024 10:33 AM EDT) Pathologist [facility] Protime 14.4(H) 10.6 - 13.9 sec LAB COAGULATION METHOD 09/25/2024 10:57 AM EDT [facility] INR 1.2 LAB COAGULATION METHOD 09/25/2024 10:57 AM EDT [facility] Blood Venous blood specimen / Unknown Venipuncture / Unknown 09/25/2024 10:33 AM EDT 09/25/2024 10:46 AM EDT Harvey Simons MD LAB BLOOD ORDERABLES Final Result [facility] [address] [place] [address], * (ABNORMAL) Complete blood count (09/25/2024 10:33 AM EDT) [facility] WBC 11.5(H) 4.8 - 10.8 K/mcL LAB HEMETOLOGY METHOD 09/25/2024 11:01 AM [facility] RBC 4.90 4.50 - 5.50 M/mcL LAB HEMETOLOGY METHOD 09/25/2024 11:01 AM [facility] Hemoglobin 14.4 13.5 - 17.5 g/dL LAB HEMETOLOGY METHOD 09/25/2024 11:01 AM [facility] Hematocrit 44.2 42.0 - 54.0 % LAB HEMETOLOGY METHOD 09/25/2024 11:01 AM [facility] MCV 91.1 79.0 - 98.0 FL LAB HEMETOLOGY METHOD 09/25/2024 11:01 AM [facility] MCH 29.7 27.0 - 32.0 pcg LAB HEMETOLOGY METHOD 09/25/2024 11:01 AM EDT [facility] MCHC 32.6 32.0 - 37.0 g/dL LAB HEMETOLOGY METHOD 09/25/2024 11:01 AM EDT [facility] RDW 15.4(H) 11.0 - 15.0 % LAB HEMETOLOGY METHOD 09/25/2024 11:01 AM EDT [facility] Platelets 221 130 - 400 K/mcL LAB HEMETOLOGY METHOD 09/25/2024 11:01 AM EDT [facility] MPV 10.7 7.0 - 11.0 FL LAB HEMETOLOGY METHOD 09/25/2024 11:01 AM EDT [facility] NRBC 0.0 <1.0 % LAB HEMETOLOGY METHOD 09/25/2024 11:01 AM EDT [facility] NRBC Absolute 0.00 <0.10 K/mcL LAB HEMETOLOGY METHOD 09/25/2024 11:01 AM EDT [facility] Blood Venous blood specimen / Unknown Venipuncture / Unknown 09/25/2024 10:33 AM EDT 09/25/2024 10:46 AM EDT Harvey Simons MD LAB BLOOD ORDERABLES Final Result [facility] [address] [place] [address], * Immunofixation electrophoresis serum (09/25/2024 10:33 AM EDT) Immunofixation Result, Serum No monoclonal immunoglobulins detected. LAB CHEMISTRY METHOD 09/26/2024 1:49 PM EDT [facility] Blood Venous blood specimen / Unknown Venipuncture / Unknown 09/25/2024 10:33 AM EDT 09/25/2024 10:45 AM EDT Leesa Nolasco NP LAB BLOOD ORDERABLES Final Result Performing Organization Address [facility]/ZIP Co de Phone Number [facility] [address] [place] [address], [place] [phone] * Immunoglobulins IgG, IgA, IgM (09/25/2024 10:33 AM EDT) Pathologist [facility] Total IgG 1,280 549 - 1,584 mg/dL LAB CHEMISTRY METHOD 09/25/2024 12:02 PM EDT [facility] IgA 310 61 - 348 mg/dL LAB CHEMISTRY METHOD 09/25/2024 12:02 PM EDT [facility] IgM 79 23 - 259 mg/dL LAB CHEMISTRY METHOD 09/25/2024 12:02 PM EDT [facility] Blood Venous blood specimen / Unknown Venipuncture / Unknown 09/25/2024 10:33 AM EDT 09/25/2024 10:45 AM EDT Leesa Nolasco NP LAB BLOOD ORDERABLES Final Result Performing Organization Address [facility] de Phone Number [facility] [address] [place] [address], [place] [phone] * (ABNORMAL) Basic metabolic panel (09/25/2024 10:33 AM EDT) [facility] Sodium 138 133 - 145 mmol/L LAB CHEMISTRY METHOD 09/25/2024 11:44 AM EDT [facility] Potassium 4.2 3.5 - 5.5 mmol/L LAB CHEMISTRY METHOD 09/25/2024 11:44 AM EDT [facility] Chloride 106 96 - 110 mmol/L LAB CHEMISTRY METHOD 09/25/2024 11:44 AM EDT [facility] CO2 28 21 - 32 mmol/L LAB CHEMISTRY METHOD 09/25/2024 11:44 AM [facility] Anion Gap 4 3 - 11 LAB CHEMISTRY METHOD 09/25/2024 11:44 AM [facility] Glucose 120(H) 70 - 100 mg/dL LAB CHEMISTRY METHOD 09/25/2024 11:44 AM [facility] BUN 20 5 - 25 mg/dL LAB CHEMISTRY METHOD 09/25/2024 11:44 AM [facility] Creatinine 1.00 0.70 - 1.30 mg/dL LAB CHEMISTRY METHOD 09/25/2024 11:44 AM [facility] eGFR 80 >=60 mL/min/1. 73m2 LAB CHEMISTRY METHOD 09/25/2024 11:44 AM [facility] Comment:Calculation based on the Chronic Kidney Disease Epidemiology Collaboration (CKD-EPI) equation refit without adjustment for race. BUN/Creatinine Ratio 20.0 LAB CHEMISTRY METHOD 09/25/2024 11:44 AM [facility] Calcium 8.1(L) 8.5 - 10.5 mg/dL LAB CHEMISTRY METHOD 09/25/2024 11:44 AM [facility] Blood Venous blood specimen / Unknown Venipuncture / Unknown 09/25/2024 10:33 AM EDT 09/25/2024 10:45 AM EDT Harvey Simons MD LAB BLOOD ORDERABLES Final Result [facility] [address] [place] [address], * ECG 12 lead (08/16/2024 9:01 AM EDT) Ventricular Rate ECG 130 BPM GEMUSE Atrial Rate 130 BPM GEMUSE P-R Interval 134 ms GEMUSE QRS Duration 130 ms GEMUSE Q-T Interval 314 ms GEMUSE QTc 462 ms GEMUSE P Wave Neeses 84 degrees GEMUSE R Neeses -72 degrees GEMUSE T Neeses 88 degrees GEMUSE ECG Interpretation Atrial flutter, suspect atypical left atrial flutter Right bundle branch block Left anterior fascicular block Inferior infarct (cited on or before 23-MAR-2022) When compared with ECG of 21-MAY-2023 20:08, Vent. rate has increased BY 45 BPM Prior EKG with NSR Confirmed by BRANDON SIMONS ([id number]) on 08/16/2024 10:32:39 AM GEMUSE 08/16/2024 9:01 AM EDT 08/16/2024 10:32 AM EDT us Harvey Simons MD ECG ORDERABLES Final Resu lt GEMUSE from Last 3 Months Insurance [employer] - [place] MEDICARE ADVANTAGE Care Teams Media Arts Professor Relationship Specialty Start Date End Date Mario Arreguin MD [address] [place] [id number] PCP - General 09/28/16
--- NOTE | 2024-11-01 14:31 | A.OFFVIS_ITS ---
Intake Intake Visit Reasons: 60 min Learning Coach Required: No Accompanied by: Self / Same As Patient Allergies Penicillins Allergy (Unknown, Verified 02/22/24 14:44) Anaphylaxis HPI Comprehensive Diabetes Asmnt Most Recent Diabetes Results: Microalb/Creat Ratio, (<30) 27.1 ug/mg cr 10/12/23 Cholesterol, (<200) 133 mg/dL 10/12/23 HDL Cholesterol, (>40) 34 mg/dL L 10/12/23 Triglycerides, (<150) 92 mg/dL 10/12/23 Creatinine, (0.5-1.4) 1.21 mg/dL 10/12/23 BUN, (9-16) 22 mg/dL H 10/12/23 Sodium, (135-145) 138 mmol/L 10/12/23 Potassium, (3.3-5.1) 4.3 mmol/L 10/12/23 Chloride, (96-108) 101 mmol/L 10/12/23 Carbon Dioxide, (22-29) 25 mmol/L 10/12/23 Calcium, (8.4-10.2) 9.4 mg/dL 10/12/23 AST, (5-37) 14 U/L 10/12/23 ALT, (0-40) 24 U/L 10/12/23 Total Protein, (6.5-8.0) 7.7 g/dL 10/12/23 Albumin, (3.5-5.0) 4.0 g/dL 10/12/23 [facility] Medical History Non-STEMI (non-ST elevated myocardial infarction) Obesity Carotid stenosis Coronary artery disease Atrial fibrillation Hyperlipidemia associated with type 2 diabetes mellitus Type 2 diabetes mellitus not at goal Surgical History History of surgery Hx of tonsillectomy Hx of appendectomy History of quadruple bypass Family History Mother Family history unknown Father Heart problem Social History Alcohol intake: current Alcohol intake frequency: holidays/special occasions only Patient Tobacco Use Status: Current someday Tobacco user Assessment & Plan Assessment & Plan (1) Type 2 diabetes mellitus not at goal: Code(s): E11.9 - Type 2 diabetes mellitus without complications Plan: Learning objectives: The patient was provided with verbal and written education on the following topics as outlined below. Assess patient education level/literacy/barriers, patient's A1c 8.4% August 2024, up from 6.5% in 02/2024. Patient reports he had to stop GLP 1 due to high cost of co-pay He is currently taking Basaglar 40 units daily Does not have any other diabetes meds Encourage patient to increase physical activity, especially after meals to help with post meal glucose numbers Patient did not bring meter to today's visit. Patient reports he tests 2 to 3 times a week and the glucose numbers range from 82-123 mg/dL Encourage patient to test glucose at various times of the day Patient reports he does not feel comfortable wearing glucose sensor stating I do not want anything in my body Patient has upcoming appointment Dr. Joseph Fischer in November 2024, encourage patient to discuss alternative medication to GLP 1 at that visit The patient met all learning objectives and was able to verbalize understanding and provide teach back of education topics discussed . The patient was provided with the opportunity to ask questions and all questions were answered. Topics covered in today?s session included: Medications (If applicable) * Name of medication? * Dosing/administration instructions? * Mechanism of action? * Potential side effects? * Potential adverse reaction and appropriate treatment? * Review onset, peak, duration Assess for concerns re: insurance coverage, cost, barriers to compliance Insulin/Injectables (If applicable) * Storage/care of insulin?? * Injection sites? * Site rotation? * Onset, peak, duration * Drawing up insulin? * Injecting insulin/other injectables? * Sharps disposal Continuous blood glucose monitoring (if applicable) Hypoglycemia and Hyperglycemia * Signs and symptoms? * Causes?? * Treatment? * Preventing hypoglycemia? * When to seek medical attention Target Goals: * Blood glucose targets and how you feel when your blood glucose is in and out of your target ranges. * Monitoring and knowing your A1C. * What can make blood glucose go up and down and preventing high and low blood glucose. * Review of blood sugar targets in expected goal range and outside of expected goal range. * Problem solving and preventing hyper/hypoglycemia. * Sick day management of diabetes. * Using blood sugar results in decision making process in managing diabetes. ?Patient was receptive to information provided and participated in the dis cussion. Asked?appropriate questions and demonstrated good understanding of the topics discussed.? ? Educational Materials: The patient was provided with the following written educational materials: Target Goal handout Smart Goal Assessment:? Patient will bring meter to [facility] at [facility] Pt met goal less than 25% New Smart Goal: Patient will bring meter to every visit at [facility] Comprehension of Instructions: fair Readiness to make changes:? Contemplation How confident they feel about making changes: fair Portions of this note were created using voice recognition software, please excuse any words or phrases that may have been misinterpreted. Coding Level of Care Code Est Pt Level 1 (58323) Diagnoses Type 2 diabetes mellitus not at goal E11.9
== END 2024-11-01 14:43 | disposition home or self-care (01) ==
LOC: HO.ENCR 13:50
PROVIDERS: PCP Internal Medicine; Visit Provider Registered Nurse Diabetes Educator
DX: E11.9 Type 2 diabetes mellitus without complications (principal)

== ENCOUNTER → 2024-11-01 13:49 | Outpatient (BNVA) | payer MEDICARE, SELFPAY | PROVIDERS: PCP Internal Medicine; Visit Provider Registered Nurse Diabetes Educator | DX: E11.9 Type 2 diabetes mellitus without complications (principal) | CPT/HCPCS: 99211 ==

== ENCOUNTER 2024-11-29 14:41 | Outpatient (AMB) | payer MEDICARE, SELFPAY ==
--- OUTSIDE RECORDS SUMMARY | 2014-08-21 05:30 | XMS_ITS | Continuity of Care Document ---
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 Unspecified Restorative Procedure, By Re port Limited Oral Evaluation-Problem Focused PORCELAIN FUSED TO BASE/IMP PFM TEMPORARY CROWN PFM/PREP AND FINAL IMP Resin-Based Composite-Four Or More Surfa jf Or Inv Anterior (Excluding Final Yarsani) J RCT IN PROCESS Intraoral-Periapical First Film 013 Palliative (Emergency) Treatment Of [place] al Pain Oral Hygiene Instructions Periodontal Scaling [...] Provider Providers Copied on Encounter Nicholas Marcus [facility], [address], [place], [id number], tel:[phone] [facility] 5 No Information Nicholas Marcus [facility], [address], [place], [place], [id number], tel:[phone] [facility] 4 No Information Nicholas Marcus [facility], [address], [place], [place], [id number], [place] tel:[phone] [facility] Sep-0 7- 4 No Information [facility], [address], [place], [place], [id number], [place] tel:[phone] [facility] 4 No Information [facility], [address], [place], [place], [id number], [place] tel:[phone] [facility] 0 - 4 No Information [facility], [address], [place], [place], [id number], [place] tel:[phone] [facility] 4 No Information [facility], [address], [place], [place], [id number], [place] tel:[phone] [facility] Jun- 4 No Information [facility], [address], [place], [place], [id number], [place] tel:[phone] [facility] 4 Jaycee Lara. [address] [place] [address], [id number], [place]. tel:[phone] [facility], [address], [place], [place], [id number], [place] tel:[phone] [facility] Jun-0 4 No Information [facility], [address], [place], [place], [id number], [place] tel:[phone] [facility] 4 No Information [facility], [address], [place], [place], [id number], [place] tel:[phone] [facility] 0 4 No Information [facility], [address], [place], [place], [id number], [place] tel:[phone] [facility] 2- 3 No Information [facility], [address], [place], [place], [id number], [place] tel:[phone] [facility] 1- 3 No Information [facility], [address], [place], [place], [id number], [place] tel:[phone] [facility] 8 3 No Information [facility], [address], [place], [place], [id number], [place] tel:[phone] [facility] 3 No Information [facility], [address], [place], [place], [id number], [place] tel:[phone] [facility] examination 3- 3 No Information [facility], [address], [place], [place], [id number], [place] tel:[phone] [facility] 7- 3 No Information [facility], [address], [place], [place], [id number], [place] tel:[phone] [facility] 3 No Information Family History Family Member Type Diagnosis Age At Onset No Information Payers Payer name Insurance type Covered libertarian ID Authoriza tion(s) No Information Social History [...]
--- NOTE | 2024-11-29 14:42 | MHC.OFFVIS ---
Vital Signs 11/29/24 14:43 Height 5 ft 5 in Weight 251 lb 5.231 oz BMI 41.8 BP 156/72 H Blood Pressure Location Rt brachial Pulse 89 Pulse Source Pulse Oximeter Pulse Oximetry (%) 96 Oxygen Delivery Method Room Air Intake Visit Reasons: T2DM Intake Note: Patient presents today for a follow-up on Type 2 Diabetes Mellitus: Last Diabetic Eye exam: DUE? Patient will be calling to make an appt. Last Podiatry Visit: Patient does not see a Sap Bw Consultant Most recent HgA1C: 7.6%, 11/29/2024 Random Glucose: 273 mg/dL, Today Administrative Assistant Required: No Accompanied by: Self / Same As Patient Allergies Penicillins Allergy (Unknown, Verified 11/29/24 14:54) Anaphylaxis HPI Comments Details: 69 YO male who is seen in follow up for T2DM. Medical history: CAD s/p CABG, HTN, carotid surgery Current regimen Basaglar 30 units Patient has had ozempic but too expensive. Mounjaro cost prohibitive. coupon sent today Intolerant: Metformin-fatigue, malaise. Jardiance does not recall His goal is to get off insulin A1C 7.6%-11/29/2024 Denies hypoglycemia Treats lows with several pieces of candy,keeps crackers in the car Has eyes checked yearly, , denies retinopathy. Denies neuropathy Denies nephropathy, on ARB Has HLD, on statin. ROS CONSTITUTIONAL: Denies weight loss, fever and chills. HEENT: Denies changes in vision and hearing. RESPIRATORY: Denies SOB and cough. CV: Denies palpitations and CP GI: Denies abdominal pain, nausea, vomiting and diarrhea. : Denies dysuria and urinary frequency. MSK: Denies new myalgia and joint pain. SKIN: Denies rash and pruritus. NEUROLOGICAL: Denies headache PSYCHIATRIC: Denies recent changes in mood. PHYSICAL EXAM: GENERAL: Alert and oriented x 3. NAD EYES: EOMI. Anicteric. HENT: Moist mucous membranes. No scleral icterus. No cervical lymphadenopathy. LUNGS: Clear to auscultation bilaterally. CARDIOVASCULAR: Regular rate and rhythm. No murmur. No JVD. ABDOMEN: Soft, non-tender +bs EXTREMITIES: No edema. Non-tender. SKIN: No rashes or lesions. Warm. NEUROLOGIC: No focal neurological deficits. CN II-XII grossly intact PSYCHIATRIC: Cooperative. Appropriate mood and affect [facility] Medical History Non-STEMI (non-ST elevated myocardial infarction) Obesity Carotid stenosis Coronary artery disease Atrial fibrillation Hyperlipidemia associated with type 2 diabetes mellitus Type 2 diabetes mellitus not at goal Surgical History History of surgery Hx of tonsillectomy Hx of appendectomy History of quadruple bypass Family History Mother Family history unknown Father Heart problem Social History Alcohol intake: current Alcohol intake frequency: holidays/special occasions only Patient Tobacco Use Status: Current someday Tobacco user Physical Exam Vital Signs: Last Vital Signs Pulse 89 11/29/24 14:43 BP 156/72 H 11/29/24 14:43 Pulse Ox 96 11/29/24 14:43 Oxygen Delivery Method Room Air 11/29/24 14:43 BMI result Body Mass Index 41.8 Results AMB Hemoglobin A1c AMB Hemoglobin A1c 7.6 % Last Edit by СВЕТЛАНА Zarate on 11/29/24 14:59 Results Reviewed Results Reviewed: Laboratory Last Values Glucose (Clinic) 273 mg/dL (60-115) H 11/29/24 14:49 Hgb A1c (Clinic) 7.6 % (4.0-6.0) H 11/29/24 14:54 Assessment & Plan Assessment & Plan (1) Type 2 diabetes mellitus not at goal: Code(s): E11.9 - Type 2 diabetes mellitus without complications Category: Medical (2) Coronary artery disease: Code(s): I25.10 - Atherosclerotic heart disease of [place] coronary artery without angina pectoris Category: Medical Qualifiers: Associated angina: unspecified whether angina present Coronary Disease-Associated Artery/Lesion type: unspecified vessel or lesion type [place] vs. transplanted heart: unspecified whether [place] or transplanted heart Qualified Code(s): I25.10 - Atherosclerotic heart disease of [place] coronary artery without angina pectoris Plan Diabetes uncontrolled GLP agonists have been cost prohibitive. Moe sent with coupon If this is not approved will start glipizide or actos. Continue insulin Efforts toward weight loss. Orders: Orders AMB Hemoglobin A1c 11/29/24 E11.9 - Type 2 diabetes mellitus without complications Medications: Taye Vasquez (tirzepatide) RXBIN: [id number] PCN: [id number] GRP: [id number] ID: [id number] Expiration Date: 03/21/2025 2.5 mg (0.5 mL) subcut QWEEK 2 mL 1RF NS Discontinued semaglutide (Ozempic) Discontinued Reason: Duplicate 1 mg (0.75 mL) subcut QWEEK 3 mL 7RF Coding Level of Care Code Est Pt Level 4 (65193) Diagnoses Type 2 diabetes mellitus not at goal E11.9 Coronary artery disease, unspecified vessel or lesion type, unspecified whether angina present, unspecified whether [place] or transplanted heart I25.10 Associated angina: unspecified whether angina present Coronary Disease-Associated Artery/Lesion type: unspecified vessel or lesion type [place] vs. transplanted heart: unspecified whether [place] or transplanted heart
[2024-11-29 14:43] VITALS: BP 156/72; PULSE 89; O2SAT 96; BMI 41.8
[2024-11-29 14:53] LABS: Glucose, Whole Blood 273 mg/dL (60-115)
--- OUTSIDE RECORDS SUMMARY | 2024-11-29 17:53 | XMS_ITS | Clinical Summary ---
Author Organization [address] [place] [address] [place] [id number] Phone Care Team Providers Care Slaughterer Religious Ritual Name Role Phone Mario Arreguin MD Primary Care Provider [phone] Allergies Active Allergy Reactions Criticality Noted Date Comments Penicillin 06/06/2024 Medications atorvastatin (LIPITOR) 80 mg tablet Take 1 tablet (80 mg total) by mouth 1 (one) time each day. at bedtime. 5 Active aspirin 81 mg EC tablet Take 1 tablet (81 mg total) by mouth 1 (one) time each day. Active omega 0-ctc-oow-fish oil (Fish OiL) 1,000 (120-180) mg capsule [...] each day. 90 tablet 1 5 Active insulin glargine,hum.re c.anlog (Basaglar KwikPen U-100 Insulin) 100 unit/mL (3 mL) injection pen Inject 40 Units under the skin at bedtime. 5 Active dilTIAZem SR (CARDIZEM SR) 60 mg 12 hr capsule Take 1 capsule (60 mg total) by mouth 2 (two) times a day. 5 11/23/19 25 Discontinu ed(Therapy completed) Lantus Solostar U-100 Insulin 100 unit/mL (3 mL) injection pen INJECT 40 UNITS UNDER THE SKIN EVERY EVENING 5 11/23/19 25 Discontinu ed(Therapy completed) Active Problems Problem Noted Date Diagnosed Date Class 2 obesity 08/16/2024 Lateral epicondylitis of left elbow 07/28/2024 Coronary artery disease invo lving [place] coronary artery of [place] heart without angina pectoris 06/05/2024 Assessment & [...] of LVEF 55 to 60%. Echocardiogram at [facility] at the time of hospitalization when [...] Nuclear cardiac amyloid study (CV Performed); Future Milner-lambda free light chains, quantitative; Future Longstanding persistent [...] They have reached out to the patient's education administrative assistant program for Eliquis and their request [...] Encounters Date Type Department Care Team Description 11/22/2024 2:40 PM EDT Office Visit [facility] [address] [place] [id number] Tabby Manuel PA Longstanding persistent atrial fibrillation (CMS/HCC V24, CMS/HCC V28) (Primary Dx); Coronary artery disease involving [place] coronary artery of [place] heart without angina pectoris; HFrEF (heart failure with reduced ejection fraction) (CMS/HCC V24, CMS/HCC V28); Mixed hyperlipidemia 10/11/2024 Telephone [facility] [address] [place] [address] Annika Ramos, AB 09/29/2024 Telephone [facility] [address] [place] [address] Annika Ramos, ENGINEERING SPECIALIST 09/27/[address] [facility] [address] [facility] [address] [place] [address] Ana-Gokul Bush MD 09/25/2024 10:35 AM EDT Lab Draw Station - [address] [facility] [address] [place] [address] Atrial fibrillation (CMS/HCC V24, CMS/HCC V28); HFrEF (heart failure with reduced ejection fraction) (CMS/HCC V24, CMS/HCC V28) from Last 3 Months Surgical History Surgery Date Site/Laterality Comments [place] 09/28/2024 [place] [facility] [place] INDICATIONS:ATRIAL FIBRILLATION/ATRIAL FLUTTER Medical History Medical History Date Comments Class [...] Sign Reading Time Taken Comments Blood Pressure 118/60 11/22/2024 2:52 PM EDT Pulse 90 11/22/2024 2:52 PM EDT Temperature - - Respiratory Rate - - Oxygen Saturation 96% 11/22/2024 2:52 PM EDT Inhaled Oxygen Concentration - - Weight 112 kg (246 lb) 11/22/2024 2:52 PM EDT Height 170.2 cm (5' 7 ) 11/22/2024 2:52 PM EDT Body Mass Index 38.53 11/22/2024 2:52 PM EDT Plan of Treatment Upcoming Encounters Date Type Department Care Team (Late st Contact Info) Description 12/06/2024 3:00 PM EDT Office Visit [facility] Hematology Oncology [address] [place] [address] Keegan Whaley MD [address] [place] [address] 01/30/2025 3:10 PM EST Office Visit [facility] [address] [place] [address] Tabby Manuel PA [address] [place] [address] [place] [address] 02/05/2025 12:30 PM EST Ancillary Procedure [facility] [address] [place] [address] Health Maintenance Due Date Last Done Comments Diabetes: Annual Foot Exam 1965 Diabetes: Annual Retina Eye Exam 1965 DTaP,Tdap,and Td Vaccines (1 - Tdap) 02/13/1972 [...] 02/22/2022 Social Influencers of Health Screening 02/22/2022 Depression Screening 03/22/2024 COVID-19 Vaccine (2024-2 6 season) 2024 03/20/2021, 06/13/2020, 05/16/2020 Influenza Vaccine (#1) 2024 Diabetes: Annual Urine Albumin-Creatinine Ratio (uACR) 11/22/2024 Diabetes: Blood Sugar Contro l Test (HGBA1C) 11/22/2024 Diabetes: Annual GFR (Glomerular Filtration Rate) 09/25/2025 09/25/2024 Hypertension/CHF/CAD Annual BMP Blood Test 09/25/2025 09/25/2024 [...] Procedure Name Priority Date/Time Associated Diagnosis Comments ECG 12-LEAD Routine 11/22/2024 3:21 PM EDT Longstanding persistent atrial fibrillation (CMS/HCC V24, CMS/HCC V28) [place] IMMUNOFIXATION ELECTROPHORESIS SERUM Routine 09/25/2024 10:33 AM [...] EDT Atrial fibrillation (CMS/HCC V24, CMS/HCC V28) from Last 3 Months Results * ECG 12 lead (11/22/2024 3:21 PM EDT) Ventricular Rate ECG 90 BPM GEMUSE Atrial Rate 90 BPM GEMUSE P-R Interval 142 ms GEMUSE QRS Duration 124 ms GEMUSE Q-T Interval 414 ms GEMUSE QTc 506 ms GEMUSE P Wave [place] 59 degrees GEMUSE R [place] -34 degrees GEMUSE T [place] 66 degrees GEMUSE ECG Interpretation Normal sinus rhythm Left axis deviation Right bundle branch block Inferior infarct (cited on or before 23-MAR-2022) Abnormal ECG When compared with ECG of 16-AUG-2024 09:01, Previous ECG has undetermined rhythm, needs review ST no longer elevated in Inferior leads Non-specific change in ST segment in Lateral leads GEMUSE 11/22/2024 2:57 PM EDT us Tabby PRICE ECG ORDERABLES Final Result GEMUSE * Pathologist Review Immunofixation (09/25/2024 10:33 AM EDT) Pathologist [facility] Pathologist Interpretation Reviewed by Leslie Everett MD 09/26/2024 1:49 PM EDT [facility] Blood Venous blood specimen / Unknown Venipuncture / Unknown 09/25/2024 10:33 AM EDT 09/25/2024 10:45 AM EDT us Leesa Nolasco NP LAB BLOOD ORDERABLES Final Result Performing Organization Address City/[facility]/ZIP Co de Phone Number [facility] [address] [place] [address], * (ABNORMAL) Milner-lambda free light chains, quantitative (09/25/2024 10:33 AM EDT) Pathologist [facility] Milner Free Light Chain 6.10(H) 0.33 - 1.94 mg/dL 09/27/2024 11:47 AM EDT [facility] Lambda Free Light Chain 3.00(H) 0.57 - 2.63 mg/dL 09/27/2024 11:47 AM EDT [facility] Milner/Lambda FLC Ratio 2.03(H) 0.26 - 1.65 09/27/2024 11:47 AM EDT [facility] Comment: Test performed at [facility], [address] , [place] [address] Camille Rodriguez MD, PhD - Contracts Representative Blood Venous blood specimen / Unknown Venipuncture / Unknown 09/25/2024 10:33 AM EDT 09/25/2024 10:45 AM EDT Leesa Nolasco NP LAB BLOOD ORDERABLES Final Result [facility] [address] [place] [address] * (ABNORMAL) Prothrombin time with INR (09/25/2024 10:33 AM EDT) [facility] Protime 14.4(H) 10.6 - 13.9 sec LAB COAGULATION METHOD 09/25/2024 10:57 AM EDT [facility] INR 1.2 LAB COAGULATION METHOD 09/25/2024 10:57 AM EDT [facility] Blood Venous blood specimen / Unknown Venipuncture / Unknown 09/25/2024 10:33 AM EDT 09/25/2024 10:46 AM EDT Harvey King MD LAB BLOOD ORDERABLES Final Result [facility] [address] [place] [address], * (ABNORMAL) Complete blood count (09/25/2024 10:33 AM EDT) [facility] Signature WBC 11.5(H) 4.8 - 10.8 K/mcL LAB HEMETOLOGY METHOD 09/25/2024 11:01 AM EDT [facility] RBC 4.90 4.50 - 5.50 M/mcL LAB HEMETOLOGY METHOD 09/25/2024 11:01 AM [facility] Hemoglobin 14.4 13.5 - 17.5 g/dL LAB HEMETOLOGY METHOD 09/25/2024 11:01 AM [facility] Hematocrit 44.2 42.0 - 54.0 % LAB HEMETOLOGY METHOD 09/25/2024 11:01 AM [facility] MCV 91.1 79.0 - 98.0 FL LAB HEMETOLOGY METHOD 09/25/2024 11:01 AM [facility] MCH 29.7 27.0 - 32.0 pcg LAB HEMETOLOGY METHOD 09/25/2024 11:01 AM [facility] MCHC 32.6 32.0 - 37.0 g/dL LAB HEMETOLOGY METHOD 09/25/2024 11:01 AM [facility] RDW 15.4(H) 11.0 - 15.0 % LAB HEMETOLOGY METHOD 09/25/2024 11:01 AM [facility] Platelets 221 130 - 400 K/mcL LAB HEMETOLOGY METHOD 09/25/2024 11:01 AM [facility] MPV 10.7 7.0 - 11.0 FL LAB HEMETOLOGY METHOD 09/25/2024 11:01 AM [facility] NRBC 0.0 <1.0 % LAB HEMETOLOGY METHOD 09/25/2024 11:01 AM EDT [facility] NRBC Absolute 0.00 <0.10 K/mcL LAB HEMETOLOGY METHOD 09/25/2024 11:01 AM EDT [facility] Blood Venous blood specimen / Unknown Venipuncture / Unknown 09/25/2024 10:33 AM EDT 09/25/2024 10:46 AM EDT Harvey King MD LAB BLOOD ORDERABLES Final Result Performing Organization Address City/[facility]/ZIP Co de Phone Number [facility] [address] [place] [address], [place] [phone] * Immunofixation electrophoresis serum (09/25/2024 10:33 AM EDT) Pathologist [facility] Immunofixation Result, Serum No monoclonal immunoglobulins detected. LAB CHEMISTRY METHOD 09/26/2024 1:49 PM EDT [facility] Blood Venous blood specimen / Unknown Venipuncture / Unknown 09/25/2024 10:33 AM EDT 09/25/2024 10:45 AM EDT Leesa Nolasco NP LAB BLOOD ORDERABLES Final Result Performing Organization Address City/[facility]/ZIP Co de Phone Number [facility] [address] [place] [address], [place] [phone] * Immunoglobulins IgG, IgA, IgM (09/25/2024 10:33 AM EDT) Pathologist [facility] Total IgG 1,280 549 - 1,584 mg/dL LAB CHEMISTRY METHOD 09/25/2024 12:02 PM EDT [facility] IgA 310 61 - 348 mg/dL LAB CHEMISTRY METHOD 09/25/2024 12:02 PM EDT [facility] IgM 79 23 - 259 mg/dL LAB CHEMISTRY METHOD 09/25/2024 12:02 PM EDT [facility] Blood Venous blood specimen / Unknown Venipuncture / Unknown 09/25/2024 10:33 AM EDT 09/25/2024 10:45 AM EDT Leesa Nurys Gaurav BERGER LAB BLOOD ORDERABLES Final Result [facility] [address] [place] [address], * (ABNORMAL) Basic metabolic panel (09/25/2024 10:33 AM EDT) Sodium 138 133 - 145 mmol/L LAB CHEMISTRY METHOD 09/25/2024 11:44 AM [facility] Potassium 4.2 3.5 - 5.5 mmol/L LAB CHEMISTRY METHOD 09/25/2024 11:44 AM [facility] Chloride 106 96 - 110 mmol/L LAB CHEMISTRY METHOD 09/25/2024 11:44 AM [facility] CO2 28 21 - 32 mmol/L LAB CHEMISTRY METHOD 09/25/2024 11:44 AM [facility] Anion Gap 4 3 - 11 LAB CHEMISTRY METHOD 09/25/2024 11:44 AM [facility] Glucose 120(H) 70 - 100 mg/dL LAB CHEMISTRY METHOD 09/25/2024 11:44 AM [facility] BUN 20 5 - 25 mg/dL LAB CHEMISTRY METHOD 09/25/2024 11:44 AM [facility] Creatinine 1.00 0.70 - 1.30 mg/dL LAB CHEMISTRY METHOD 09/25/2024 11:44 AM [facility] eGFR 80 >=60 mL/min/1. 73m2 LAB CHEMISTRY METHOD 09/25/2024 11:44 AM [facility] Comment:Calculation based on the Chronic Kidney Disease Epidemiology Collaboration (CKD-EPI) equation refit without adjustment for race. BUN/Creatinine Ratio 20.0 LAB CHEMISTRY METHOD 09/25/2024 11:44 AM EDT [facility] Calcium 8.1(L) 8.5 - 10.5 mg/dL LAB CHEMISTRY METHOD 09/25/2024 11:44 AM EDT [facility] Blood Venous blood specimen / Unknown Venipuncture / Unknown 09/25/2024 10:33 AM EDT 09/25/2024 10:45 AM EDT us Harvey King MD LAB BLOOD ORDERABLES Final Result [facility] [address] [place] [address], [place] [phone] from Last 3 Months Insurance [employer] - [place] MEDICARE ADVANTAGE Care Teams Slaughterer Religious Ritual Relationship Specialty Start Date End Date Mario Arreguin MD [address] [place] [id number] PCP - General 09/28/16
--- OUTSIDE RECORDS SUMMARY | 2024-11-29 17:53 | XMS_ITS | Clinical Summary ---
Author Organization [facility] Address [address] [place] [address] Phone Care Team Providers Care Civil Engineering Manager Name Role Phone Mario Arreguin MD Primary Care Provider [phone] Allergies Active Allergy Reactions Criticality Noted Date [...] patient's age to complete this topic Insurance [place] [address] ([id number]) [facility] ([id number]) Care Teams Civil Engineering Manager Relationship Specialty Start Date End Date Mario Arreguin MD [address] [place] [address], [address] [place] [address] PCP - General Internal Medicine 06/16/22
== END 2024-11-29 15:24 | disposition home or self-care (01) ==
PROVIDERS: PCP Internal Medicine; Visit Provider Internal Medicine
DX: E11.9 Type 2 diabetes mellitus without complications (principal)

== ENCOUNTER → 2024-11-29 14:41 | Outpatient (BNVA) | payer MEDICARE, SELFPAY | PROVIDERS: PCP Internal Medicine; Visit Provider Internal Medicine | DX: E11.9 Type 2 diabetes mellitus without complications (principal); I25.10 Atherosclerotic heart disease of native coronary artery without angina pectoris | CPT/HCPCS: 82947; 83036; 99212 ==

== ENCOUNTER 2025-01-04 14:51 | Outpatient (AMB) | payer MEDICARE, SELFPAY ==
--- OUTSIDE RECORDS SUMMARY | 2014-08-21 05:30 | XMS_ITS | Continuity of Care Document ---
Author Organization Nicholas Marcus [facility] Address [address] [place] [address] Phone Care Team Providers Care Railroad Signal And Switch Operator Name Role Phone Unavailable Unavailable Unavailable Allergies, Adverse Reactions, Alerts Substance Reaction Status Criticality Penicillins Active No Information Medications Medication Instructions Dosage Effective Dates (start - stop) Status Comments clindamycin 300 mg capsule take 1 capsule (300MG) by oral route every 6 hours 300 MG - Active Percocet 5 mg-325 mg tablet take 1 tablet by oral route every 6 hours as needed 1.00 tablet - Active GLYBURIDE (unknown strength) take 1 tablet by oral route every day before breakfast Not Available - Active SIMVASTATIN (unknown strength) take 1 tablet by oral route every day in the evening Not Available - Active LIPITOR (unknown strength) take 1 tablet by oral route every day Not Available - Active Procedures Procedure Date Periodic Oral Evaluation-Established Pat ient Prophylaxis-Adult Oral Hygiene Instructions Periodontal Probing Bitewing-Single Film Bitewings-Two Films Periodic Oral Evaluation-Established Pat ient Prophylaxis-Adult Oral Hygiene Instructions Periodontal Probing Resin-Based Composite-One Surface, Anter ior Periodic Oral Evaluation-Established Pat ient Prophylaxis-Adult Oral Hygiene Instructions Periodontal Probing Resin-Based Composite-Two Surfaces, Ante rior PFM/TRYIN [place]-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 Unspecified Restorative Procedure, By Re port Limited Oral Evaluation-Problem Focused PORCELAIN FUSED TO BASE/IMP PFM TEMPORARY CROWN PFM/PREP AND FINAL IMP Resin-Based Composite-Four Or More Surfa jf Or Inv Anterior (Excluding Final Buddhism) J RCT IN PROCESS Intraoral-Periapical First Film 013 Palliative (Emergency) Treatment Of [place] al Pain Oral Hygiene Instructions Periodontal Scaling And Root Planing-Fou r Or More Periodontal Scaling And Root Planing-Fou r Or More Oral Hygiene Instructions Periodontal Scaling And Root Planing-Fou r Or More Periodontal Scaling And Root Planing-Fou r Or More Oral Hygiene Instructions Surgical Removal Of Erupted Tooth Requir ing Elevat Surgical Removal Of Erupted Tooth Requir ing Elevat Surgical Removal Of Erupted Tooth Requir ing Elevat Panoramic Film Prophylaxis-Adult Oral Hygiene Instructions Comprehensive Periodontal Evaluation-New Or Establ Bitewings-Two Films Comprehensive Oral Evaluation-New Or Est ablished P Advance Directives Directive Yes / No Effective Date File Name No Information Encounters Encounter Description Practice Location Reason(s) For Visit Diagnoses Date Provider Providers Copied on Encounter Nicholas Marcus [facility], [address], [place], [id number], tel:[phone] [facility] 5 No Information Nicholas Marcus [facility], [address], [place], [place], [id number], tel:[phone] [facility] 4 No Information Nicholas Marcus [facility], [address], [place], [place], [id number], [place] tel:[phone] [facility] Sep-0 7- 4 No Information [facility], [address], [place], [place], [id number], [place] tel:[phone] [facility] 4 No Information [facility], [address], [place], [place], [id number], [place] tel:[phone] [facility] 0 - 4 No Information [facility], [address], [place], [place], [id number], [place] tel:[phone] [facility] 4 No Information [facility], [address], [place], [place], [id number], [place] tel:[phone] [facility] Jun- 4 No Information [facility], [address], [place], [place], [id number], [place] tel:[phone] [facility] 4 Jaycee Lara. [address] [place] [address], [id number], [place]. tel:[phone] [facility], [address], [place], [place], [id number], [place] tel:[phone] [facility] Jun-0 4 No Information [facility], [address], [place], [place], [id number], [place] tel:[phone] [facility] examination 4 No Information [facility], [address], [place], [place], [id number], [place] tel:[phone] [facility] 0 4 No Information [facility], [address], [place], [place], [id number], [place] tel:[phone] [facility] 2 3 No Information [facility], [address], [place], [place], [id number], [place] tel:[phone] [facility] 1- 3 No Information [facility], [address], [place], [place], [id number], [place] tel:[phone] [facility] 3 No Information [facility], [address], [place], [place], [id number], [place] tel:[phone] [facility] 3 No Information [facility], [address], [place], [place], [id number], [place] tel:[phone] [facility] examination 3- 3 No Information [facility], [address], [place], [place], [id number], [place] tel:[phone] [facility] 7 3 No Information [facility], [address], [place], [place], [id number], [place] tel:[phone] [facility] 3 No Information Family History Family Member Type Diagnosis Age At Onset No Information Payers Payer name Insurance type Covered republican ID Authoriza tion(s) No Information Social History Type Description Quantity Date Captured Comments Alcohol Use Details Unknown Caffeine Use Details Unknown Tobacco Use Status No Information Smoking Status No Information Sex Male Chief Complaint And Reason For Visit No Information Reason For Referral Reason For Referral No Information Plan Of Treatment Date Type Action Status Goal Zoster vaccine (1st). Due on due Goal Unhealthy drug use screening . Due on due Goal FIT-DNA. Due on due Goal CT-Colonography. Due on due Goal FOBT. Due on due Goal Hepatitis C Screening. Due o n due Goal Document SOGI Information. D ue on due Goal Zoster vaccine. Due on due Goal Td vaccine. Due on 15 due Goal Lipid panel. Due on due Goal APE. Due on due Goal Colonoscopy. Due on due Goal Influenza vaccine. Due on due Goal Tdap. Due on due History Of Present Illness Encounter Date Complaint History Of Prese nt Illness No Information Functional Status Date Functional Assessmen t No Information Instructions Date Instruction Additional Infor mation No Information Assessments Type Assessment Date No Information Patient Care Teams Name Effective Dates (start - stop) Status Members No Information
--- NOTE | 2025-01-04 15:00 | A.OFFVIS_ITS ---
Intake Intake Visit Reasons: 60 min Formwork Carpenter Required: No Accompanied by: Self / Same As Patient Allergies Penicillins Allergy (Unknown, Verified 11/29/24 14:54) Anaphylaxis HPI Comprehensive Diabetes Asmnt Most Recent Diabetes Results: Microalb/Creat Ratio, (<30) 27.1 ug/mg cr 10/12/23 Cholesterol, (<200) 133 mg/dL 10/12/23 HDL Cholesterol, (>40) 34 mg/dL L 10/12/23 Triglycerides, (<150) 92 mg/dL 10/12/23 Creatinine, (0.5-1.4) 1.21 mg/dL 10/12/23 BUN, (9-16) 22 mg/dL H 10/12/23 Sodium, (135-145) 138 mmol/L 10/12/23 Potassium, (3.3-5.1) 4.3 mmol/L 10/12/23 Chloride, (96-108) 101 mmol/L 10/12/23 Carbon Dioxide, (22-29) 25 mmol/L 10/12/23 Calcium, (8.4-10.2) 9.4 mg/dL 10/12/23 AST, (5-37) 14 U/L 10/12/23 ALT, (0-40) 24 U/L 10/12/23 Total Protein, (6.5-8.0) 7.7 g/dL 10/12/23 Albumin, (3.5-5.0) 4.0 g/dL 10/12/23 [facility] Medical History Non-STEMI (non-ST elevated myocardial infarction) Obesity Carotid stenosis Coronary artery disease Atrial fibrillation Hyperlipidemia associated with type 2 diabetes mellitus Type 2 diabetes mellitus not at goal Surgical History History of surgery Hx of tonsillectomy Hx of appendectomy History of quadruple bypass Family History Mother Family history unknown Father Heart problem Social History Alcohol intake: current Alcohol intake frequency: holidays/special occasions only Patient Tobacco Use Status: Current someday Tobacco user Assessment & Plan Assessment & Plan (1) Type 2 diabetes mellitus not at goal: Code(s): E11.9 - Type 2 diabetes mellitus without complications Plan: Topics covered in today?s session included: Patient's A1c on 11/29/2024 7.6% down from 8.4% on 08/22/2024 Pt was unable to get Mounjaro covered, is looking for new insurance coverage. Discussed at today's visit alternative medication. Such as glipizide and Actos. Per Dr. Vincent Fischer is no from last visit she will start him on 1 of those if he is unable to get Mounjaro Patient is currently taking Basaglar 35 units daily Medications (If applicable) * Name of medication? * Dosing/administration instructions? * Mechanism of action? * Potential side effects? * Potential adverse reaction and appropriate treatment? * Review onset, peak, duration Assess for concerns re: insurance coverage, cost, barriers to compliance Insulin/Injectables (If applicable) * Storage/care of insulin?? * Onset, peak, duration Hypoglycemia and Hyperglycemia * Signs and symptoms? * Causes?? * Treatment? * Preventing hypoglycemia? * When to seek medical attention Target Goals: * Monitoring and knowing your A1C. * What can make blood glucose go up and down and preventing high and low blood glucose. * Review of blood sugar targets in expected goal range and outside of expected goal range. * Using blood sugar results in decision making process in managing diabetes. ?Patient was receptive to information provided and participated in the discussion. Asked?appropriate questions and demonstrated good understanding of the topics discussed.? ? Coding Level of Care Code Est Pt Level 1 (15290) Diagnoses Type 2 diabetes mellitus not at goal E11.9
--- OUTSIDE RECORDS SUMMARY | 2025-01-04 18:43 | XMS_ITS | Clinical Summary ---
Author Organization [address] [place] [address] [place] [phone] Phone Care Team Providers Care Records Management Analyst Name Role Phone Mario Arreguin MD Primary Care Provider [phone] Allergies Active Allergy Reactions Criticality Noted Date Comments Penicillin 06/06/2024 Medications atorvastatin (LIPITOR) 80 mg tablet Take 1 tablet (80 mg total) by mouth 1 (one) time each day. at bedtime. 04/05/2024 Active aspirin 81 mg EC tablet Take 1 tablet (81 mg total) by mouth 1 (one) time each day. Active omega 9-ndx-osh-fish oil (Fish OiL) 1,000 (120-180) mg capsule [...] each day. 90 tablet 1 07/19/2024 Active insulin glargine,hum.re c.anlog (Basaglar KwikPen U-100 Insulin) 100 unit/mL (3 mL) injection pen Inject 40 Units under the skin at bedtime. 11/14/2024 Active Active Problems Problem Noted Date Diagnosed Date Class 2 obesity 08/16/2024 Lateral epicondylitis of left elbow 07/28/2024 Coronary artery disease invo lving ho-chunk coronary artery of ho-chunk heart without angina pectoris 06/05/2024 Assessment & [...] of LVEF 55 to 60%. Echocardiogram at [facility] at the time of hospitalization when [...] Nuclear cardiac amyloid study (CV Performed); Future [place]-lambda free light chains, quantitative; Future Longstanding persistent [...] They have reached out to the patient's physiotherapy assistant program for Kaylene and their request was denied. Their plan [...] Encounters Date Type Department Care Team Description 12/06/2024 3:00 PM EDT Office Visit [facility] Hematology Oncology [address] [place] [address] Keegan Man MD MGUS (monoclonal gammopathy of unknown significance) (Primary Dx); HFrEF (heart failure with reduced ejection fraction) (CMS/HCC V24, CMS/HCC V28); Elevated serum immunoglobulin free light chain level 11/22/2024 2:40 PM EDT Office Visit [facility] Cardiology [facility] [address] [place] [address] Tabby Manuel PA Longstanding persistent atrial fibrillation (CMS/HCC V24, CMS/HCC V28) (Primary Dx); Coronary artery disease involving [place] coronary artery of [place] heart without angina pectoris; HFrEF (heart failure with reduced ejection fraction) (CMS/HCC V24, CMS/HCC V28); Mixed hyperlipidemia 10/11/2024 Telephone [facility] Cardiology [facility] [address] [place] [address] Annika Ramos NP from Last 3 Months Surgical History Surgery Date Site/Laterality Comments ABLATION DONE ON 09/28/2024 AT [facility] W SR INDICATIONS:ATRIAL FIBRILLATION/ATRIAL FLUTTER Medical History Medical History Date Comments Class 2 obesity DX:Class 2 obesi ty Diabetes mellitus, type 2 (C MS/HCC V24, CMS/HCC V28) DX:Diabetes mellitus, type 2 (HCC) Social History Tobacco Use Types Packs/Day Years Used Date Smoking Tobacco: Some Days Cigarettes Cigars Smokeless Tobacco: Never Alcohol Use Standard Drinks/Week Comments Yes 0 (1 standard drink = 0.6 oz pur e alcohol) occ Sex and Gender Information Value Date Recorded Sex Assigned at Not on file Legal Sex Male 6:37 AM EST Gender Identity Not on file Sexual Orientation Not on file Obstetrics History Last Filed Vital Signs Vital Sign Reading Time Taken Comments Blood Pressure 117/49 12/06/2024 3:40 PM EDT Pulse 88 12/06/2024 3:40 PM EDT Temperature 36.8 C (98.3 F) 12/06/2024 3:40 PM EDT Respiratory Rate - - Oxygen Saturation 99% 12/06/2024 3:40 PM EDT Inhaled Oxygen Concentration - - Weight 113 kg (248 lb 9.6 oz) 12/06/2024 3:40 PM EDT Height 165.1 cm (5' 5 ) 12/06/2024 3:40 PM EDT Body Mass Index 41.37 12/06/2024 3:40 PM EDT Plan of Treatment Upcoming Encounters Date Type Department Care Team (Late st Contact Info) Description 01/30/2025 3:10 PM EST Office Visit [facility] Cardiology [facility] - [facility] [address] [facility] [address] [place] [address] Tabby Manuel PA [address] [facility] [address] [place] [address] 02/05/2025 12:30 PM EST Ancillary Procedure [facility] Cardiology [facility] - [facility] [address] [facility] [address] [place] [address] 06/13/2025 3:00 PM EDT Office Visit [facility] Hematology Oncology [address] [place] [phone] Keegan Whaley MD [address] [place] [phone] Health Maintenance Due Date Last Done Comments Colorectal Cancer Screening: Colonoscopy 1955 Diabetes: Annual Foot Exam 1963 Diabetes: Annual Retina Eye Exam 1965 DTaP,Tdap,and Td Vaccines (1 - Tdap) 02/13/1972 Pneumococcal Vaccine: 50+ Years (1 of 2 - PCV) 02/13/1972 RSV Immunization Adult Patients (1 - Risk 50-74 years 1-dose series) 2003 Zoster Vaccines (1 of 2) 2003 Abdominal Aortic Aneurysm (AAA) Screen 02/22/2022 Cholesterol Screening (Lipid Panel) 02/22/2022 Falls Risk Assessment 02/22/2022 Hepatitis C Screening 02/22/2022 Medicare Annual Wellness Visit 02/22/2022 Social Influencers of Health Screening 02/22/2022 Depression Screening 03/22/2024 COVID-19 Vaccine ( - 2024-2 6 season) 2024 03/20/2021, 06/13/2020, 05/16/2020 Influenza [...] persistent atrial fibrillation (CMS/HCC V24, CMS/HCC V28) BASIC METABOLIC PANEL Routine 09/25/2024 10:33 AM EDT Atrial fibrillation (CMS/HCC V24, CMS/HCC V28) from Last 3 Months or Most Recently Relevant to Health Maintenance Results * ECG 12 lead (11/22/2024 3:21 PM EDT) [facility] Ventricular Rate ECG 90 BPM GEMUSE Atrial Rate 90 BPM GEMUSE P-R Interval 142 ms GEMUSE QRS Duration 124 ms GEMUSE Q-T Interval 414 ms GEMUSE QTc 506 ms GEMUSE P Wave [place] 59 degrees GEMUSE R [place] -34 degrees GEMUSE T [place] 66 degrees GEMUSE ECG Interpretation Normal sinus rhythm Left axis deviation Right bundle branch block Inferior infarct (cited on or before 23-MAR-2022) When compared with ECG of 16-AUG-2024 09:01, Prior EKG with atrial flutter Confirmed by BRANDON SIMONS ([id number]) on 12/12/2024 8:04:02 PM GEMUSE 11/22/2024 2:57 PM EDT 12/12/2024 8:04 PM EDT us Tabby PRICE ECG ORDERABLES Edited Result - Final GEMUSE * (ABNORMAL) Basic metabolic panel (09/25/2024 10:33 AM EDT) [facility] Sodium 138 133 - 145 mmol/L LAB CHEMISTRY METHOD 09/25/2024 11:44 AM EDT [facility] Potassium 4.2 3.5 - 5.5 mmol/L LAB CHEMISTRY METHOD 09/25/2024 11:44 AM EDT [facility] Chloride 106 96 - 110 mmol/L LAB CHEMISTRY METHOD 09/25/2024 11:44 AM EDT [facility] CO2 28 21 - 32 mmol/L LAB CHEMISTRY METHOD 09/25/2024 11:44 AM [facility] Anion Gap 4 3 - 11 LAB CHEMISTRY METHOD 09/25/2024 11:44 AM [facility] Glucose 120(H) 70 - 100 mg/dL LAB CHEMISTRY METHOD 09/25/2024 11:44 AM [facility] BUN 20 5 - 25 mg/dL LAB CHEMISTRY METHOD 09/25/2024 11:44 AM [facility] Creatinine 1.00 0.70 - 1.30 mg/dL LAB CHEMISTRY METHOD 09/25/2024 11:44 AM [facility] eGFR 80 >=60 mL/min/1. 73m2 LAB CHEMISTRY METHOD 09/25/2024 11:44 AM [facility] Comment:Calculation based on the Chronic Kidney Disease Epidemiology Collaboration (CKD-EPI) equation refit without adjustment for race. BUN/Creatinine Ratio 20.0 LAB CHEMISTRY METHOD 09/25/2024 11:44 AM [facility] Calcium 8.1(L) 8.5 - 10.5 mg/dL LAB CHEMISTRY METHOD 09/25/2024 11:44 AM [facility] Blood Venous blood specimen / Unknown Venipuncture / Unknown 09/25/2024 10:33 AM EDT 09/25/2024 10:45 AM EDT Harvey Simons MD LAB BLOOD ORDERABLES Final Result [facility] [address] [place] [address], from Last 3 Months or Most Recently Relevant to Health Maintenance Insurance [employer] - [place] MEDICARE ADVANTAGE Care Teams Records Management Analyst Relationship Specialty Start Date End Date Mario Arreguin MD [address] [place] [id number] PCP - General 09/28/16
--- OUTSIDE RECORDS SUMMARY | 2025-01-04 18:43 | XMS_ITS | Data Portability ---
Author Organization [facility], [facility] Address [address] [place] [address] Care Team Providers Care Manager Distribution Center Name Role Phone [place] Primary Care Provider [phone] Assessment Encounter Date Assessment Date Assessment LastModified by Organization Details LastModified Time 08/12/2023 08/12/2023 Chief Complaint: Left shoulder subacromial impingement and acromioclavicular joint arthrosis, full-thickness rotator cuff tear of the supraspinatus HPI: The patient is a 68-year-old retired male today regarding a few month history of left shoulder pain. He describes gradual onset of symptoms. He denies any specific injury or trauma. He has tried rest and activity modification. No prior shoulder surgery. He isolates his pain primarily to his anterior and superior shoulder. Rest makes his pain better while lifting and reaching activities make his pain worse. I previously saw him on 03/19/2023 and performed a combined acromial clavicular joint and subacromial steroid injection, which gave him 2 days of symptomatic relief. I last saw him on 04/16/2023 and referred him for an MRI of the left shoulder. Unfortunately, this was a very limited study given his significant claustrophobia. I saw him again on 05/13/2023 and performed a subacromial steroid injection with good improvement in symptoms until recently. He comes in today for reevaluation and discussion of treatment options. I independently reviewed the MRI of the left shoulder dated 05/06/2023. This is a limited MRI with a partial axial series only given the patient's claustrophobia. There is evidence of a full-thickness tear of the supraspinatus. The infraspinatus appears intact based on the available series. Subscapularis intact with upper border tendinosis. Some chondral thinning to the glenohumeral joint with no full-thickness chondral deficit appreciated. I reviewed previous X-rays ordered, obtained and reviewed at [facility] from February 2020.. These images included Grashey, scapular roll and axillary views of the left shoulder. No acute fractures or dislocations. Normal glenohumeral joint space. Normal acromion distance. Downsloping acromion. Severe acromioclavicular joint arthrosis with inferior and superior clavicular and acromial spurring. Type II acromion. No os acromiale. He has a past medical history of cardiac disease status post quadruple bypass surgery. He also has a history of diabetes. Medications are listed in the medical record. He has an allergy to penicillin. No personal or family history of blood clots. Past medical, surgical, family and social history; Medications, Allergies and 12-point review of systems have been reviewed, updated and charted. Physical Examination: Height and weight as noted in chart. Constitutional: Patient pleasant, well appearing and in NAD. Mental status: Patient is alert and oriented to person, place and time. No short-term memory deficits. Psychiatric: Mood and affect are appropriate. Head: Normocephalic and atraumatic. Exterior inspection of the ears and nose was unremarkable. Hearing grossly intact. Eyes: Sclera are not blue. impregnator carbon products II-XII are grossly intact. Full extraocular motion. Neck: Supple with age-appropriate ROM. No tracheal deviation. No obvious JVD. Respiratory: Non-labored breathing. Symmetric excursion. No audible wheezing or crackles. Skin: No rashes, lesions, wounds to the upper extremities. Normal turgor and coloration. Musculoskeletal: On examination of the left shoulder, there is no effusion, erythema or ecchymosis. Active shoulder elevation to 150 and passive to 170 limited by pain. External rotation to 45 on the left compared to 50 on the right. Internal rotation to the buttock on the left and thoracolumbar junction on the right. 4+/5 strength resisted abduction. Positive tenderness at the acromioclavicular joint. Positive pain with cross body adduction. Positive impingement signs. Procedure: Injection of Steroid and Anesthetic, Subacromial Space All reasonable risks and benefits of injection were discussed. Risks include bleeding, infection, non-relief of symptoms, recurrence of symptoms, allergic type reaction, scarring, fat atrophy, and hyperglycemia. After obtaining consent, the left posterior shoulder was prepped in sterile fashion using an alcohol swab. The skin was anesthetized with ethyl chloride spray, wiped again with alcohol, and an injection of 1cc of Kenalog 40 and 4cc s of Lidocaine 1% was performed using a 22-gauge needle into the subacromial space. The medication flowed freely and the patient tolerated this procedure well. The patient was instructed to avoid strenuous activity following the injection for approximately 24 to 48 hours, and then a gradual return to normal activities is allowed. Impression and Plan: 68-year-old retired male with several months of gradual onset left shoulder pain with overall history, x-rays, MRI and exam consistent with left shoulder full-thickness rotator cuff tear of the supraspinatus, subacromial impingement/bursiti s and acromioclavicular joint arthrosis. I discussed options both operative and nonoperative. The patient does wish to avoid surgery. He did request a repeat injection today and I recommended a repeat subacromial approach given his finding of rotator cuff tear on MRI. He tolerated this injection very well. I stressed the importance of activity modification with avoidance of exacerbating activities including heavy lifting overhead or lifting heavy away from the body. I discussed good lifting mechanics. I also recommended a low-dose oral anti-inflammatory such as ibuprofen rnfp-ofv-phacvaf and/or Tylenol as needed. Lastly, I also discussed the role of left shoulder arthroscopy with rotator cuff repair and related procedures. He will think this over and give us a call if he wishes to discuss this further. All questions and concerns were addressed. Today's visit involved examining the patient, reviewing the history, reviewing the radiographic studies, counseling the patient regarding treatment options, and the administrative tasks including placing orders, preparing patient information and home handouts and preparing the visit note. This note was generated with [facility] speech recognition chandelier maker dictation software. Please excuse any errors that may have been overlooked during review of this note. Sometimes, these errors may affect the content or meaning of a given sentence. Please call for corrections. [email or web address] Not available 08/12/2023 15:47:23 07/28/2024 07/28/2024 I am seeing the patient today under the supervision of Dr Chisholm who was available but who did not see the patient. [email or web address] Not available 07/28/2024 15:26:42 Plan of Treatment Reminders Order Date Submit Date Provider Last Modified By Organization Details Last Modified Time Details Appointments None recorded. Lab None recorded. Referral occupationa l therapist referral - Diagnosis: rt medial epi Custom molded orthosis: none Treatment: Eccentric stretching and strengtheni ng wrist and digits, deep tissue massage 2024 025 [email or web address] Not available 15:06:32 Procedures None recorded. Surgeries None recorded. Imaging XR, elbow, 2 view - 2v rt elbow, press department manager, rm 118 2024 025 [email or web address] [facility] Office, [address] [facility] [place], [facility] [address], [place], [address], 5 15:06:32 Medication Orders None recorded. Patient TargetsNo targets recorded. Patient InstructionsNo instructions recorded. Reason for Referral Occupational Therapist Refer ral for Right medial elbow tendinopathy Diagnosis: rt medial epiCustom molded orthosis: noneTreatment: Eccentric stretching and strengthening wrist and digits, deep tissue massage Referring Physician: Anoop Mcintosh, Orthopedic Surgery, Encounter Date: 06/07/2024 Results Created Date Observation Date Name Description Value Unit Range Abnormal Flag Note LastModifiedBy Organization Detail LastModifiedTime 11/19/19 24 05/06/2023 imagi ng/di agnos tic resul t No observ ation record ed. [email or web address] Not Available 10/22 04:37:44 06/08/1906/07/2024 XR, elbow , 2 view [email or web address] ?Encry pted=s hAaTro YD8dLq bEUv6g %2BXZw aYqtaq 0bqfl% 2Fg9IQ a4ajBk vP9nXo QUaueC m3YtLR FvZlgJ JJ8mAn HZtai3 6e3818 AC0KqY nmBVaW gKiQtr MwF INTERFACE [facility] [address], [place], [address], 06/07/2024 14:24:07 06/08/19 25 06/07/2024 XR, elbow , 2 view [email or web address]:/ [email or web address] ?Encry pted=s hAaTro YD8dLq bEUv6g %2BXZw aYqtaq 0bqfl% 2Fg9IQ a4ajBk vP9nXo QUaueC m3YtLR FvZlgJ JJ8mAn HZtai3 8a2585 AC0KqY nmBVaW gKiQtr MwF INTERFACE [facility] [address], [place], [address], 06/07/2024 14:24:09 Result Notes Documentation Provider Name and Address Organization Details Recorded Time Xr, Elbow, 2 View : [email or web address] Encrypted=ofCxRvfRD2jRbvA Uv6g%1MZBsnFvcvz0haxj%2Fg 2VKa5kkRypX7wLmAJuslXr0Qd AEFuBltIDS4yPeOEnzm36w838 9ZF9QkNnmKWnDaYnUkkDoN Not Available [facility] 06/07/2024 14:24: 08 Xr, Elbow, 2 View : [email or web address] Encrypted=tiSoLdsVZ9uAzyX Uv6g%3USOfsYnuzr1nchl%2Fg 9QHu5qtUyfR2eSuTHulkJf8Qs RKBdHorGTA4wPyBUjev63t822 0CE9CcYokZIfZoOaFbrTqX Not Available [facility] 06/07/2024 14:24: 10 Problems Name Problem SNOMED Code Status Onset Date Resolution Date Notes Provider Name and Address Organization Details Recorded Time Left lateral elbow tendinopath y 7215644003234 00 Active 2024 Cameron Blanchard PA-C [address] [facility] [address], [place], [address], [facility] 5 15:26:46 Problem Notes None recorded. Procedures Surgical History Date Name Laterality Status Provider Name and Address Organization Details Recorded Time 5 JZLat Epi completed Cameron Blanchard PA-C [address], [place], [address], [facility] 07/28/2024 15:26:38 4 Sports Shoulder completed Rom Stauffer MD [address] [facility] [address], [place], [address], [facility] 08/12/2023 15:47:31 Imaging Results None recorded. Procedure Notes None recorded. Medical Equipment None Reported. Allergies Allergen ID Allergen Name Allergen Category Reaction Reaction Severity Criticality Documentation Date Start Date Code Code System Note Provider Name and Address Organization Details Recorded Time 85917 egg extract food,medi cation Not available Not available Not available 05/24/20232022 14180 15 RxNorm Not Available [facility] 4 13:09:54 65785 Product containin g penicilli n (product) medicatio n Not available Not available Not available 05/24/20232022 72556 8001 SNOMED Not Available [facility] 4 13:09:55 Medications Name Sig Start Date Stop Date Status Note LastModified by Organization Details LastModified Time furosemide 40 mg tablet TAKE 1 TABLET BY MOUTH EVERY DAY active Not Available Not Available No t Available atorvastati n 80 mg tablet TAKE 1 TABLET BY MOUTH AT BEDTIME active Not Available Not Available No t Available carvedilol 6.25 mg tablet TAKE 1 TABLET BY MOUTH TWICE DAILY active Not Available Not Available No t Available naproxen 375 mg tablet TAKE 1 TABLET BY MOUTH TWICE DAILY active Not Available Not Available No t Available valsartan 80 mg tablet TAKE 1 TABLET BY MOUTH EVERY DAY active Not Available Not Available No t Available ciprofloxac in 500 mg tablet TAKE 1 TABLET BY MOUTH 1 HOUR BEFORE PROCEDURE AND 1 TABLET 10 HOURS AFTER active Not Available Not Available No t Available carvedilol 3.125 mg tablet TAKE 1 TABLET BY MOUTH TWICE A DAY WITH MEALS active Not Available Not Available No t Available lorazepam 2 mg tablet active Not Available Not Available No t Available diltiazem ER 60 mg capsule,ext ended release 12 hr TAKE 1 CAPSULE BY MOUTH TWICE A DAY active Not Available Not Available No t Available oxycodone 5 mg tablet TAKE 1 TABLET BY MOUTH EVERY 6 HOURS FOR 3 DAYS NEEDED FOR SEVERE PAIN 07/28 completed Not Available Not Available Not Available valsartan 40 mg tablet TAKE 1 TABLET BY MOUTH DAILY active Not Available Not Available No t Available Ativan as directed take 1 tablet hour prior to exam.DO NOT DRIVE WHILE TAKING THIS MEDICATIO N 07/28 completed Statu s: 'Curr ent'; Not Available Not Available Not Available BD Ultra-Fine Short Pen Needle 31 gauge x 5/16 USE DIRECTED ONCE A DAY AT BEDTIME FOR INSULIN PEN active Not Available Not Available No t Available Lantus Solostar U-100 Insulin 100 unit/mL (3 mL) subcutaneou s pen INJECT 40 UNITS UNDER THE SKIN EVERY EVENING active Not Available Not Available No t Available dabigatran etexilate 150 mg capsule TAKE 1 CAPSULE (150 MG TOTAL) BY MOUTH 2 (TWO) TIMES A DAY. DO NOT CRUSH OR CHEW. active Not Available Not Available No t Available OneTouch Verio test strips USE 1 STRIP VIA METER TWICE DAILY active Not Available Not Available No t Available Eliquis 5 mg tablet TAKE 1 TABLET BY MOUTH TWICE DAILY active Not Available Not Available No t Available OneTouch Delica Plus Lancet 33 gauge USE 1 LANCET DIRECTED EVERY DAY TO CHECK FASTING BLOOD SUGAR LEVELS active Not Available Not Available No t Available Mounjaro 5 mg/0.5 mL subcutaneou s pen injector ADMINISTE R 5 MG UNDER THE SKIN EVERY WEEK active Not Available Not Available No t Available Mounjaro 2.5 mg/0.5 mL subcutaneou s pen injector ADMINISTE R 2.5 MG UNDER THE SKIN EVERY WEEK FOR 4 WEEKS active Not Available Not Available No t Available Vitals Date Recorded Body height Body mass index (BMI) Body weight Provider Name and Address Organization Details Last Updated DateTime 06/07/2024 170.18 cm 39.2 kg/m2 729132.09 g USAMA DONOHUE [place] [facility] 06/07/2024 14:26:09 Date Recorded Body height Body mass index (BMI) Body weight Provider Name and Address Organization Details Last Updated DateTime 07/28/2024 170.18 cm 39.2 kg/m2 746018.09 g Rashi Prasad [facility] 07/28/2024 15:23:27 Date Recorded Body height Body mass index (BMI) Body weight Provider Name and Address Organization Details Last Updated DateTime 08/12/2023 170.18 cm 39.2 kg/m2 070666.09 g JIHAN YAOIREZ [facility] 08/12/2023 15:19:48 Social History None recorded. Functional Status None recorded. Mental Status None recorded. Family History Nothing Reported. Medical History No medical history recorded. Past Encounters Encounter ID Performer Location Encounter Start Date Encounter Closed Date Diagnosis/Indication Diagnosis SNOMED-CT Code Diagnosis ICD10 Code Diagnosis IMO Codes Diagnosis Note [id number] Rom Stauffer MD [facility] [address] [place] [address] 08/12/2023 15:13:56 09/03/2023 15:37:22 Full thickness rotator cuff tear 852245462 M75.122 Impingemen t syndrome of left shoulder region 9259636314 57631 M75.42 [id number] Anoop Mcintosh MD [facility] [address] [place] [address] 06/07/2024 14:05:24 06/26/2024 15:13:59 Pain of elbow region 57551320 M25.521 945978 Right medi al elbow tendinopathy 3128862344 98589 M77.01 [id number] [id number] Cameron Blanchard PA-C [facility] [address] [place] [address] 07/28/2024 15:20:43 08/16/2024 11:43:07 Left lateral elbow tendinopathy 5950788665 49573 M77.12 6210518 Health Concerns Section Related Observation LastModified by Organization Detai ls LastModified Time None Recorded Concern Status LastModified by Organization Details LastModified Time None Recorded Advance Directives Directive None Recorded Payers Insurance Date Sequence Insurance Name Policy Number Policy Scanlon Covered Member ID Scanlon Member ID Guarantor Name 08/16/2024 1 [place] (MEDICARE REPLACEMENT PPO) [id number] Juno Burks [id number] Juno Burks 07/28/2024 1 [facility] - DOS ON OR AFTER 2022 - ONE CARE (MEDICARE REPLACEMENT/AD VANTAGE - HMO) Juno Burks [id number] Juno Burks Notes Date Note Type Note Provider Name and Address Organization Details Recorded Time 06/07/2024 text/html ROS as noted in the HPI Diagnosis: Left medial epicondylitis The patient presents at his request. He is developed pain and tenderness over the medial aspect of his left elbow. The pain is sharp and moderate in severity. He describes no numbness or tingling. Past family, medical, social history and review of systems has been reviewed, updated and is located in the patient s chart. Examination: Healthy appearing patient in no apparent distress. Alert and oriented. He has symmetric range of motion of his bilateral elbows and forearms. Provocative testing of both elbows reveals no instability he is tender to palpation over his left medial epicondyle. He has pain in this region with resisted elbow elbow and wrist tension no atrophy in either upper extremity. Brisk capillary refill in all digits X-rays ordered, obtained, and reviewed today at [facility]: PA and lateral of the left elbow reveal no evidence of fracture or dislocation. Plan: I described the patient the nature of medial epicondylitis and his treatment options. He will begin with a course of occupational therapy. If he returns in 6 weeks and still remains symptomatic I would consider a corticosteroid injection. Anoop Mcintosh MD [address] [place] [address] [address], [place], [address], [facility] - [facility] 06/09/2024 12:20:22
== END 2025-01-04 15:54 | disposition home or self-care (01) ==
LOC: HO.ENCR 14:52
PROVIDERS: PCP Internal Medicine; Visit Provider Registered Nurse Diabetes Educator
DX: E11.9 Type 2 diabetes mellitus without complications (principal)

== ENCOUNTER → 2025-01-04 14:51 | Outpatient (BNVA) | payer MEDICARE, SELFPAY | PROVIDERS: PCP Internal Medicine; Visit Provider Registered Nurse Diabetes Educator | DX: E11.9 Type 2 diabetes mellitus without complications (principal) | CPT/HCPCS: 99211 ==

== ENCOUNTER 2025-02-28 14:46 | Outpatient (AMB) | payer MEDICARE, SELFPAY ==
--- NOTE | 2025-02-28 14:48 | A.OFFVIS_ITS ---
Vital Signs 02/28/25 14:49 Height 5 ft 5 in Weight 257 lb 15.053 oz BMI 42.9 BP 126/82 Blood Pressure Location Rt brachial Position Sitting Pulse 96 Pulse Source Pulse Oximeter Pulse Oximetry (%) 98 Oxygen Delivery Method Room Air Intake Visit Reasons: T2DM Intake Note: Patient presents today for a follow-up on Type 2 Diabetes Mellitus: Last Diabetic Eye exam: Couple of months ago, 2024. Last Podiatry Visit: Patient does not see a Cat Dog Or Other Pet Groomer Most recent HgA1C: 7.1%, 02/28/2025 Random Glucose: 265 mg/dL, Today Track Laying Equipment Operator Required: No Accompanied by: Self / Same As Patient Allergies Penicillins Allergy (Unknown, Verified 02/28/25 14:59) Anaphylaxis HPI Comments Details: 70 year old male who is seen in follow up for T2DM. Medical history: CAD s/p CABG, HTN, carotid surgery Current regimen Basaglar 30 units Glipizide 10mg Patient has had ozempic but too expensive. Mounjaro was very effect but was cost prohibitive. New insurance coverage in March. He is hoping to get back on GLP Intolerant: Metformin-fatigue, malaise. Jardiance does not recall His goal is to get off insulin in he future A1C 7.1% today from 7.6%-11/29/2024 Denies hypoglycemia Treats lows with several pieces of candy, keeps crackers in the car Has eyes checked yearly, denies retinopathy. Denies neuropathy Denies nephropathy, on ARB Has HLD, on statin. ROS CONSTITUTIONAL: Denies weight loss, fever and chills. HEENT: Denies changes in vision and hearing. RESPIRATORY: Denies SOB and cough. CV: Denies palpitations and CP GI: Denies abdominal pain, nausea, vomiting and diarrhea. : Denies dysuria and urinary frequency. MSK: Denies new myalgia and joint pain. SKIN: Denies rash and pruritus. NEUROLOGICAL: Denies headache PSYCHIATRIC: Denies recent changes in mood. PHYSICAL EXAM: GENERAL: Alert and oriented x 3. NAD EYES: EOMI. Anicteric. HENT: Moist mucous membranes. No scleral icterus. No cervical lymphadenopathy. LUNGS: Clear to auscultation bilaterally. CARDIOVASCULAR: Regular rate and rhythm. No murmur. No JVD. ABDOMEN: Soft, non-tender +bs EXTREMITIES: No edema. Non-tender. SKIN: No rashes or lesions. Warm. NEUROLOGIC: No focal neurological deficits. CN II-XII grossly intact PSYCHIATRIC: Cooperative. Appropriate mood and affect [facility] Medical History Non-STEMI (non-ST elevated myocardial infarction) Obesity Carotid stenosis Coronary artery disease Atrial fibrillation Hyperlipidemia associated with type 2 diabetes mellitus Type 2 diabetes mellitus not at goal Surgical History History of surgery Hx of tonsillectomy Hx of appendectomy History of quadruple bypass Family History Mother Family history unknown Father Heart problem Social History Alcohol intake: current Alcohol intake frequency: holidays/special occasions only Patient Tobacco Use Status: Current someday Tobacco user Physical Exam Vital Signs: Last Vital Signs Pulse 96 02/28/25 14:49 BP 126/82 02/28/25 14:49 Pulse Ox 98 02/28/25 14:49 Oxygen Delivery Method Room Air 02/28/25 14:49 BMI result Body Mass Index 42.9 Results AMB Hemoglobin A1c AMB Hemoglobin A1c 7.1 % Last Edit by СВЕТЛАНА Zarate on 02/28/25 15:05 Results Reviewed Results Reviewed: Laboratory Last Values Glucose (Clinic) 265 mg/dL (60-115) H 02/28/25 14:56 Hgb A1c (Clinic) 7.1 % (4.0-6.0) H 02/28/25 14:59 Assessment & Plan Assessment & Plan (1) Type 2 diabetes mellitus not at goal: Code(s): E11.9 - Type 2 diabetes mellitus without complications Category: Medical Plan Type 2 diabetes Improving control. Doing better with low carb diet but has gained weight. Medication combination is not ideal but is working well and he is very hypoglycemic aware. In March hopefully we can get him back on a GLP1 agonist and DC the glipizide Treat hypoglycemia with rules of 15 Follow up in 3 months or sooner as needed Orders: Orders AMB Hemoglobin A1c Today E11.9 - Type 2 diabetes mellitus without complications Medications: Discontinued insulin glargine Discontinued Reason: Doctor's Order 30 units (0.3 mL) subcut QPM 30 days 9 mL 6RF NS Coding Level of Care Code Est Pt Level 4 (01281) Diagnoses Type 2 diabetes mellitus not at goal E11.9
[2025-02-28 14:49] VITALS: BP 126/82; PULSE 96; O2SAT 98; BMI 42.9
[2025-02-28 15:00] LABS: Glucose, Whole Blood 265 mg/dL (60-115)
--- OUTSIDE RECORDS SUMMARY | 2025-02-28 23:11 | XMS_ITS | Clinical Summary ---
Author Organization [facility] Address [address] [place] [address] Phone Care Team Providers Care Grocery Clerk Stocking Name Role Phone Mario Arreguin MD Primary Care Provider [phone] Allergies Active Allergy Reactions Criticality Noted Date [...] patient's age to complete this topic [place] [address] ([id number]) [facility] ([id number]) Care Teams Grocery Clerk Stocking Relationship Specialty Start Date End Date Mario Arreguin MD [address] [place] [address], [address] [place] [address] PCP - General Internal Medicine 06/16/22
--- OUTSIDE RECORDS SUMMARY | 2025-02-28 23:11 | XMS_ITS | Clinical Summary ---
Author Organization [address] [place] [address] [place] [phone] Phone Care Team Providers Care Mobile Ui Developer Name Role Phone Mario Arreguin MD Primary Care Provider [phone] Allergies Active Allergy Reactions Criticality Noted Date Comments Penicillin 06/06/2024 Medications atorvastatin (LIPITOR) 80 mg tablet Take 1 tablet (80 mg total) by mouth 1 (one) time each day. at bedtime. 04/05/2024 Active aspirin 81 mg EC tablet Take 1 tablet (81 mg total) by mouth 1 (one) time each day. Active omega 5-lwr-fbo-fish oil (Fish OiL) 1,000 (120-180) mg capsule Active valsartan (DIOVAN) 80 mg tablet Take 1 tablet (80 mg total) by mouth 1 (one) time each day. 90 tablet 1 07/19/2024 Active insulin glargine,hum.re c.anlog (Basaglar KwikPen U-100 Insulin) 100 unit/mL (3 mL) injection pen Inject 40 Units under the skin at bedtime. 11/14/2024 Active carvediloL (COREG) 6.25 mg tablet TAKE 1 TABLET BY MOUTH TWICE A DAY WITH MEALS 180 tablet 1 01/15/2025 Active dabigatran etexilate (PRADAXA) 150 mg capsule TAKE 1 CAPSULE (150 MG TOTAL) BY MOUTH 2 (TWO) TIMES A DAY. DO NOT CRUSH OR CHEW. 180 capsule 1 01/15/2025 Active glipiZIDE (GLUCOTROL XL) 10 mg 24 hr tablet Take 1 tablet (10 mg total) by mouth 1 (one) time each day. 01/23/2025 Active Active Problems Problem Noted Date Diagnosed Date CHINEDU (obstructive sleep apnea) 01/30/2025 Class 2 obesity 08/16/2024 Lateral epicondylitis of left elbow 07/28/2024 Coronary artery disease invo lving alturas coronary artery of alturas heart without angina pectoris 06/05/2024 Assessment & [...] were to faint. HFrEF (heart failure with reduced ejection fract ion) 06/05/2024 Assessment & Plan (08/16/2024 10:38 AM EDT): Orders: ECG 12 lead Assessment & Plan (06/07/2024 7:47 AM EDT): Patient has a history of heart failure with reduced ejection fraction with evidence of recovery in LVEF. Prior to his CABG, his LVEF was noted to be 35 to 40% in May 2022. Postoperative echocardiogram showed normalization of LVEF 55 to 60%. 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 for Eliquis and their request [...] Encounters Date Type Department Care Team Description 02/05/2025 Telephone [facility] Cardiology [facility] [address] [place] [phone] Nova Tabares 01/30/2025 3:10 PM EST Office Visit [facility] Cardiology [facility] [address] [place] [phone] Tabby Manuel PA Longstanding persistent atrial fibrillation (CMS/HCC V24, CMS/HCC V28) (Primary Dx); Coronary artery disease involving alturas coronary artery of alturas heart without angina pectoris; Mixed hyperlipidemia; CHINEDU (obstructive sleep apnea) 12/06/2024 3:00 PM EDT Office Visit [facility] Hematology Oncology [address] [place] [phone] Keegan Whaley MD MGUS (monoclonal gammopathy of unknown significance) (Primary Dx); HFrEF (heart failure with reduced ejection fraction) (CMS/HCC V24, CMS/HCC V28); Elevated serum immunoglobulin free light chain level from Last 3 Months Surgical History Surgery Date Site/Laterality Comments ABLATION DONE ON 09/28/2024 [place] [facility] [place] INDICATIONS:ATRIAL FIBRILLATION/ATRIAL FLUTTER Medical History Medical History Date Comments Class 2 obesity DX:Class 2 obesi ty Diabetes mellitus, type 2 (C MS/HCC V24, CMS/HCC V28) DX:Diabetes mellitus, type 2 (HCC) Social History Tobacco Use Types Packs/Day Years Used Date Smoking Tobacco: Some Days Cigars Smokeless Tobacco: Never Tobacco Cessation:Ready to Q uit: Not Asked; Counseling Given: Not Answered Alcohol Use Standard Drinks/Week Comments Yes 0 (1 standard drink = 0.6 oz pur e alcohol) occ Sex and Gender Information Value Date Recorded Sex Assigned at Not on file Legal Sex Male 6:37 AM EST Gender Identity Not on file Sexual Orientation Not on file Last Filed Vital Signs Vital Sign Reading Time Taken Comments Blood Pressure 136/76 01/30/2025 3:37 PM EST Pulse 82 01/30/2025 3:13 PM EST Temperature 36.8 C (98.3 F) 12/06/2024 3:40 PM EDT Respiratory Rate - - Oxygen Saturation 97% 01/30/2025 3:13 PM EST Inhaled Oxygen Concentration - - Weight 114 kg (252 lb 3.2 oz) 01/30/2025 3:13 PM EST Height 168.9 cm (5' 6.5 ) 01/30/2025 3:13 PM EST Body Mass Index 40.1 01/30/2025 3:13 PM EST Plan of Treatment Upcoming Encounters Date Type Department Care Team (Late st Contact Info) Description 06/13/2025 3:00 PM EDT Office Visit [facility] Hematology Oncology [address] [place] [address] Keegan Whaley MD [address] [place] [phone] Health Maintenance Due Date Last Done Comments [...] Date/Time Associated Diagnosis Comments ECG 12-LEAD Routine 01/30/2025 3:39 PM EST Longstanding persistent atrial fibrillation (CMS/HCC V24, CMS/HCC V28) BASIC METABOLIC PANEL Routine 09/25/2024 10:33 AM EDT Atrial fibrillation (CMS/HCC V24, CMS/HCC V28) from Last 3 Months or Most Recently Relevant to Health Maintenance Results * ECG 12 lead (01/30/2025 3:39 PM EST) Ventricular Rate ECG 82 BPM GEMUSE Atrial Rate 82 BPM GEMUSE P-R Interval 144 ms GEMUSE QRS Duration 92 ms GEMUSE Q-T Interval 414 ms GEMUSE QTc 483 ms GEMUSE P Wave Ballwin 62 degrees GEMUSE R Ballwin -25 degrees GEMUSE T Ballwin 4 degrees GEMUSE ECG Interpretation Normal sinus rhythm Incomplete right bundle branch block When compared with ECG of 22-NOV-2024 14:57, Incomplete right bundle branch block has replaced Right bundle branch block Confirmed by BRANDON SIMONS ([id number]) on 02/27/2025 12:29:41 PM GEMUSE 01/30/2025 3:18 PM EST 02/27/2025 12:29 PM EST us Tabby PRICE ECG ORDERABLES Edited Result - Final GEMUSE * (ABNORMAL) Basic metabolic panel (09/25/2024 10:33 AM EDT) Sodium 138 133 - 145 mmol/L LAB CHEMISTRY METHOD 09/25/2024 11:44 AM [facility] Potassium 4.2 3.5 - 5.5 mmol/L LAB CHEMISTRY METHOD 09/25/2024 11:44 AM [facility] Chloride 106 96 - 110 mmol/L LAB CHEMISTRY METHOD 09/25/2024 11:44 AM [facility] CO2 28 21 - 32 mmol/L LAB CHEMISTRY METHOD 09/25/2024 11:44 AM [facility] Anion Gap 4 3 - 11 LAB CHEMISTRY METHOD 09/25/2024 11:44 AM [facility] Glucose 120(H) 70 - 100 mg/dL LAB CHEMISTRY METHOD 09/25/2024 11:44 AM [facility] BUN 20 5 - 25 mg/dL LAB CHEMISTRY METHOD 09/25/2024 11:44 AM [facility] Creatinine 1.00 0.70 - 1.30 mg/dL LAB CHEMISTRY METHOD 09/25/2024 11:44 AM EDT [facility] eGFR 80 >=60 mL/min/1. 73m2 LAB CHEMISTRY METHOD 09/25/2024 11:44 AM EDT [facility] Comment:Calculation based on the Chronic Kidney Disease Epidemiology Collaboration (CKD-EPI) equation refit without adjustment for race. BUN/Creatinine Ratio 20.0 LAB CHEMISTRY METHOD 09/25/2024 11:44 AM EDT [facility] Calcium 8.1(L) 8.5 - 10.5 mg/dL LAB CHEMISTRY METHOD 09/25/2024 11:44 AM EDT [facility] Blood Venous blood specimen / Unknown Venipuncture / Unknown 09/25/2024 10:33 AM EDT 09/25/2024 10:45 AM EDT us Harvey Simons MD LAB BLOOD ORDERABLES Final Result [facility] [address] [place] [address], from Last 3 Months or Most Recently Relevant to Health Maintenance Insurance [employer] [place] MEDICARE ADVANTAGE Care Teams Mobile Ui Developer Relationship Specialty Start Date End Date Mario Arreguin MD [address] [place] [id number] PCP - General 09/28/16
--- OUTSIDE RECORDS SUMMARY | 2025-02-28 23:11 | XMS_ITS | Data Portability ---
Author Organization [facility], [facility] Address [address] [place] [address] Care Team Providers Care Electric Train Driver Name Role Phone HI STOVER Primary Care Provider Assessment Encounter Date Assessment Date Assessment LastModified [...] previous X-rays ordered, obtained and reviewed at [facility] from February 2020.. These images included Grashey, [...] grossly intact. Eyes: Sclera are not blue. electric train driver II-XII are grossly intact. Full extraocular motion. [...] a low-dose oral anti-inflammatory such as ibuprofen tiej-gin-perpcps and/or Tylenol as needed. Lastly, I also [...] visit note. This note was generated with [facility] [employer] speech recognition drop board worker dictation software. Please excuse any errors that may have been overlooked during review of this note. Sometimes, these errors may affect the content or meaning of a given sentence. Please call for corrections. [email or web address] Not available 08/12/2023 15:47:23 07/28/2024 07/28/2024 I [...] elbow, 2 view - 2v rt elbow, inpatient services rn, rm 118 2024 025 ladiraj [facility] Office, [address] [facility] [address], [facility] [address], [place], [address], 5 15:06:32 Medication Orders None recorded. Patient [...] a4ajBk vP9nXo QUaueC m3YtLR FvZlgJ JJ8mAn HZtai3 0m7562 AC0KqY nmBVaW gKiQtr MwF INTERFACE [facility] [address], [place], [address], 06/07/2024 14:24:07 06/08/19 25 06/07/2024 XR, elbow , 2 view http:/ [email or web address] ?Encry pted=s hAaTro YD8dLq bEUv6g %2BXZw aYqtaq 0bqfl% 2Fg9IQ a4ajBk vP9nXo QUaueC m3YtLR FvZlgJ JJ8mAn HZtai3 5b3950 AC0KqY nmBVaW gKiQtr MwF INTERFACE [facility] [address], [place], [address], 06/07/2024 14:24:09 Result Notes Documentation Provider Name and Address Organization Details Recorded Time Xr, Elbow, 2 View : [email or web address]? Encrypted=ikVfMbbNW1vMuxI Uv6g%7XUCceRttsq4kiui%2Fg 6VOi6rlYanS9uGtVCwufQb6Ev QIPqUvyUJP7eMfRQbht92e986 0RD6HeXvfBZiXaEgVnaQjN Not Available [facility] 06/07/2024 14:24: 08 Xr, Elbow, 2 View : [email or web address] Encrypted=isNgDelPM6hHlaB Uv6g%6VMCtkSmdly4xmbl%2Fg 2ZAm7tuIwjZ1bUwYIdqwUc9Dp GPNtOftXOA2cVuVVfob15u837 6WY2DpXbfDCnTmGsVkuCqP Not Available [facility] 06/07/2024 14:24: 10 Problems Name Problem SNOMED Code Status Onset Date Resolution Date Notes Provider Name and Address Organization Details Recorded Time Left lateral elbow tendinopath y 5634227955987 00 Active 2024 Cameron Blanchard PA-C [address] [facility] [address], [place], [address], [facility] 5 15:26:46 Problem Notes None recorded. Procedures Surgical History Date Name Laterality Status Provider Name and Address Organization Details Recorded Time 5 JZLat Epi completed Cameron Blanchard PA-C [address] [facility] [address], [place], [address], [facility] 07/28/2024 15:26:38 4 Sports Shoulder completed Rom Stauffer MD [address] [facility] [address], [place], [address], [facility] 08/12/2023 15:47:31 Imaging Results None recorded. Procedure Notes None recorded. Medical Equipment None Reported. Allergies Allergen ID Allergen Name Allergen Category Reaction Reaction Severity Criticality Documentation Date Start Date Code Code System Note Provider Name and Address Organization Details Recorded Time 02217 egg extract food,medi cation Not available Not available Not available 05/24/20232022 54282 15 RxNorm Not Available Count includes the [facility] 4 13:09:54 29070 Product containin g penicilli n (product) medicatio n Not available Not available Not available 05/24/20232022 05111 8001 SNOMED Not Available Count includes the [facility] 4 13:09:55 Medications Name Sig Start Date [...] Updated DateTime 06/07/2024 170.18 cm 39.2 kg/m2 561958.09 g USAMA DONOHUE [place] [facility] 06/07/2024 14:26:09 Date Recorded Body height Body mass index (BMI) Body weight Provider Name and Address Organization Details Last Updated DateTime 07/28/2024 170.18 cm 39.2 kg/m2 587295.09 g Rashi Prasad [facility] 07/28/2024 15:23:27 Date Recorded Body height Body mass index (BMI) Body weight Provider Name and Address Organization Details Last Updated DateTime 08/12/2023 170.18 cm 39.2 kg/m2 993598.09 g JIHAN YAOIREZ [facility] 08/12/2023 15:19:48 Social History None recorded. Functional Status None recorded. Mental Status None recorded. Family History Nothing Reported. Medical History No medical history recorded. Past Encounters Encounter ID Performer Location Encounter Start Date Encounter Closed Date Diagnosis/Indication Diagnosis SNOMED-CT Code Diagnosis ICD10 Code Diagnosis IMO Codes Diagnosis Note [id number] Rom Stauffer MD [facility] [address] [place] [address] 08/12/2023 15:13:56 09/03/2023 15:37:22 Full thickness rotator cuff tear 977315705 M75.122 Impingemen t syndrome of left shoulder region 5164895356 85072 M75.42 [id number] Anoop Mcintosh MD [facility] [address] [place] [address] 06/07/2024 14:05:24 06/26/2024 15:13:59 Pain of elbow region 83693342 M25.521 073502 Right medi al elbow tendinopathy 4512898997 14204 M77.01 [id number] Cameron Blanchard PA-C [facility] [address] [place] [address] 07/28/2024 15:20:43 08/16/2024 11:43:07 Left lateral elbow tendinopathy 6274419658 50898 M77.12 [id number] Health Concerns Section Related Observation LastModified by Organization Detai ls LastModified Time None Recorded Concern Status LastModified by Organization Details LastModified Time None Recorded Advance Directives Directive None Recorded Payers Insurance Date Sequence Insurance Name Policy Number Policy Scanlon Covered Member ID Scanlon Member ID Guarantor Name 08/16/2024 1 [place] (MEDICARE REPLACEMENT PPO) [id number] Juno Burks [id number] Juno Burks 07/28/2024 1 [facility] - DOS ON OR AFTER 2022 - ONE CARE (MEDICARE REPLACEMENT/AD VANTAGE - HMO) Juno Burks [id number] Juno Burks Notes Date Note Type Note [...] X-rays ordered, obtained, and reviewed today at [facility]: PA and lateral of the left elbow reveal no evidence of fracture or dislocation. Plan: I described the patient the nature of medial epicondylitis and his treatment options. He will begin with a course of occupational therapy. If he returns in 6 weeks and still remains symptomatic I would consider a corticosteroid injection. Anoop Mcintosh MD [address] [place] [address] [address], [place], [address], [facility] 06/09/2024 12:20:22
== END 2025-02-28 15:23 | disposition home or self-care (01) ==
LOC: HO.ENCR 14:47
PROVIDERS: PCP Internal Medicine; Visit Provider Internal Medicine
DX: E11.9 Type 2 diabetes mellitus without complications (principal)

== ENCOUNTER → 2025-02-28 14:46 | Outpatient (BNVA) | payer MEDICARE, SELFPAY | PROVIDERS: PCP Internal Medicine; Visit Provider Internal Medicine | DX: E11.9 Type 2 diabetes mellitus without complications (principal) | CPT/HCPCS: 82947; 83036; 99212 ==